=== PATIENT | male | born 1950 | race Caucasian/White ===

== ENCOUNTER → 2018-11-20 14:56 | Outpatient (CLI) | payer MEDICARE, MEDICAID, SELFPAY ==
--- NOTE | 2018-11-20 14:58 | DI.ECHO.S_ITS ---
[facility] +---------+ : : [address] : : : : [id number] : : : : Phone: [phone]+ Echocardiogram Report + + :Name: NICHOLAS RUEDA Study Date: 11/20/2018 Height: 73 in : :[facility] Weight: 172 lb : : Gender: Male BSA: 2.0 m2 : :: 1950 Age: 68 yrs BP: 122/64 mmHg: :Reason For Study: lung transplant : : Performed By: Dominga Do : :Referring: JUSTO MCGREGOR : + + Interpretation Summary Normal sinus rhythm. Normal LV size and wall thickness; normal wall motion and LV systolic function. EF is 60-65%. There is moderately dilated RV with mildly reduced RV function. There is D shaped LV in systole and diastole c/w RV pressure overload. Mitral valve leaflets are normal; there is mild MAC without significant mitral regurgitation. Aortic valve is a trileaflets structure; it is mildly calcified; no regurgitation or stenosis. Tricuspid valve leaflets are normal; mild central TR; estimated PA systolic pressure is 45 mm hg assuming RA pressure of 3 mm Hg. Mildly dilated ascending aorta (4.1 cm) No prior study available for comparison. Procedure: A two-dimensional transthoracic echocardiogram with color flow and Doppler was performed. The study quality was technically adequate. There is no prior echocardiogram noted for this patient. The heart rate ranged between 93-98 bpm during the study. Left Ventricle: The left ventricle is normal in size, wall thickness, and systolic function without any focal wall motion abnormalities. The ejection fraction is estimated to be 60-65%. Flattened septum is consistent with RV pressure/volume overload. Right Ventricle: The right ventricle is moderately dilated. Right ventricular systolic function is mildly reduced. Atria: Both atria are normal in size. There is no Doppler evidence for an interatrial shunt. Mitral Valve: The mitral valve leaflets appear mildly thickened, but open well. There is trace mitral regurgitation. Aortic Valve: The aortic valve opens well. The aortic valve is trileaflet. The aortic valve is mildly calcified. There is no aortic valve stenosis. No aortic regurgitation is present. Tricuspid Valve: The tricuspid valve is normal in structure and function. There is mild tricuspid regurgitation. The right ventricular systolic pressure is estimated to be at least 45 mmHg based on an estimated right atrial pressure of 3 mm Hg. Pulmonic Valve: The pulmonic valve is normal in structure and function. Great Vessels: The aortic root is normal size. The aortic arch is normal in size. The ascending aorta is mildly enlarged. The pulmonary artery is normal size. The IVC is of normal diameter and collapses greater than 50% with a sniff. This suggests a low right atrial pressure of 3 mm Hg. Pericardium/ Pleura There is no pericardial effusion. There is no pleural effusion. MMode/2D Measurements & Calculations LVIDd: 4.8 cm LVOT diam: 2.0 cm LVIDs: 3.7 cm Ao root diam: 3.5 cm FS: 24.5 % asc Aorta Diam: 4.1 cm IVSd: 0.96 cm Ao Arch Diam (distal): 2.4 cm LVPWd: 0.85 cm LV trinh. diameter/BSA (cm/m^2): 2.4 LV sys. diameter/BSA (cm/m^2): 1.8 LA A2 area: 19.2 cm2 RA long axis: 6.2 cm LA A4 area: 14.2 cm2 RA area: 20.7 cm2 LA length (vol): 5.8 cm RA vol: 58.7 ml LA vol: 40.1 ml RA : 29.1 ml/m2 LA vol index: 19.8 ml/m2 IVC diam: 1.3 cm RVD1 (basal): 3.8 cm TAPSE: 1.5 cm Doppler Measurements & Calculations Ao V2 max: 137.2 cm/sec LVOT Max Matty: 92.3 cm/sec Ao V2 mean: 101.6 cm/sec LV V1 max P.4 mmHg Ao max P.5 mmHg LV V1 VTI: 16.5 cm Ao mean P.5 mmHg SANDI(I,D): 2.3 cm2 Ao V2 VTI: 22.5 cm SANDI(V,D): 2.1 cm2 sev ratio: 0.73 SANDI indexed to BSA (cm^2/m^2): 1.1 MV E max matty: 65.6 cm/sec TR max matty: 322.7 cm/sec MV A max matty: 97.9 cm/sec TR max P.7 mmHg MV E/A: 0.67 Med Peak E' Matty: 6.7 cm/sec E/E' med: 9.7 Lat Peak E' Matty: 13.3 cm/sec E/E' lat: 4.9 E/e' average: 7.3 MV P1/2t: 42.6 msec MV P1/2t max matty: 66.2 cm/sec SV(LVOT): 51.6 ml MVA(P1/2t): 5.2 cm2 Electronically signed by: Ramandeep Frederick M.D. on Reading Physician:11/21/2018 02:32 AM
== END ==
PROVIDERS: PCP Student in an Organized Health Care Education/Training Program; Visit Provider Student in an Organized Health Care Education/Training Program
DX: I07.1 Rheumatic tricuspid insufficiency (principal); J84.9 Interstitial pulmonary disease, unspecified
CPT/HCPCS: 93306

== ENCOUNTER 2019-03-16 14:22 | Emergency (ER) | payer OTHER, MEDICARE, MEDICAID, SELFPAY ==
[2019-03-16 14:30] VITALS: BP 94/64; PULSE 125; RESP 32; TEMP 37.2; O2SAT 99
--- NOTE | 2019-03-16 14:32 | ED.SOB ---
HPI - SOB/Dyspnea General Chief Complaint: Shortness of Breath/Dyspnea Stated Complaint: SOB Time Seen by Provider: 03/16/19 14:31 Source: patient and EMS Mode of arrival: EMS Limitations: no limitations History of Present Illness This is a 68-year-old male comes to the emergency department with complaint of shortness of breath. Patient states that he has pulmonary fibrosis and is on hospice. He was at the [facility] when his oxygen tank ran out. He does have a concentrator but only has an output of about 2 liters/minute and patient usually requires 10 liters/minute patient states that he felt like he could not breathe. EMS states his O2 was in the 60% range, they placed him on a non-rebreather and his O2 immediately improved. Patient states he did feel like he had chest pain when he was very short of breath. He did not pass out. He denies any other new recent changes such as fever, cough cold congestion or other issues. He states that he is currently on hospice, he is potentially going to get a lung transplant but states he may not survive long enough to get this. Patient states he does not need any workup at this time. He does have additional takes for travel as well as a large concentrator that is able to do adequate output. Patient feels comfortable to return home if he has oxygen to travel. He lives about 10 minutes away by private auto. Severity: moderate Related Data Home Medications Medication Instructions Recorded Confirmed cetirizine 10 mg capsule PO cap 09/04/18 01/22/19 Previous Rx's Medication Instructions Recorded albuterol sulfate 2.5 mg/3 mL 2.5 mg INHALATION Q4-6H PRN #180 ml 09/30/18 (0.083 %) solution for nebulization atorvastatin 20 mg tablet 20 mg PO DAILY #90 tab 10/20/18 levothyroxine 50 mcg tablet 50 mcg PO DAILY #90 tab 10/20/18 metformin 500 mg tablet 500 mg PO DAILY #90 tab 10/20/18 tamsulosin 0.4 mg capsule 0.4 mg PO DAILY #90 cap 10/20/18 food supplement, lactose-reduced 1 each PO TID #5688 ml 10/29/18 oral liquid cholecalciferol (vitamin D3) 2,000 2,000 unit PO DAILY #90 cap 11/10/18 unit capsule zolpidem 10 mg tablet 10 mg PO BEDTIME PRN #30 tab 01/05/19 disabled parking #1 ea 02/04/19 nebulizer and compressor #1 each 02/10/19 Allergies Allergy/AdvReac Type Severity Reaction Status Date / Time No Known Drug Allergies Allergy Verified 03/16/19 14:33 Review of Systems Review of Systems ROS Unobtainable: All systems reviewed & are unremarkable except as noted in HPI and below PFSH Medical History Abnormal chest xray (Chronic) Chronic cough (Chronic) Hypothyroidism (Chronic) Pulmonary fibrosis (Chronic) Seasonal allergies (Chronic) Surgical History Anesthesia (Resolved) History of mandibular surgery (Resolved ~1990) Social History Smoking Status: Former smoker Tobacco: How many years used: 40 Social History Smoking Status: Former smoker Tobacco: How many years used: 40 Exam Narrative Exam Narrative: GENERAL: Alert and oriented x three, male in mild distress. Patient has a non-rebreather in place. HEENT: Head normocephalic, atraumatic, EOMI, pupils reactive, face symmetric, moist mucous membranes NECK: Supple, full range of motion CARDIOVASCULAR: Regular rate and rhythm without murmurs, rubs or gallops. RESPIRATORY: Breath sounds equal bilaterally, no wheezes, rales or rhonchi. Patient does have some coarse breath sounds. Mild tachypnea. Patient is able to speak in full sentences with a non-rebreather in place. ABDOMEN: Soft, nontender. Normoactive bowel sounds all 4 quadrants. No guarding or rebound, rigidity, no mass : No CVA tenderness EXTREMITIES: Normal range of motion, no clubbing or edema. Neurovascularly intact NEUROLOGICAL: Cranial nerves II through XII grossly intact. Moving all extremities SKIN: Warm, dry, no petechiae, no rashes or lesions. Initial Vital Signs Initial Vital Signs: Vital Signs Temperature 99.0 F 03/16/19 14:30 Pulse Rate 125 H 03/16/19 14:30 Respiratory Rate 32 H 03/16/19 14:30 Blood Pressure 94/64 03/16/19 14:30 Pulse Oximetry 99 03/16/19 14:30 Course Vital Signs - 8 hr 03/16/19 14:30 03/16/19 15:01 Temperature 99.0 F Pulse Rate 125 H 109 H Respiratory Rate 32 H 26 H Blood Pressure 94/64 Blood Pressure [Left Arm] 114/59 L Pulse Oximetry 99 97 MDM - SOB/Dyspnea MDM Narrative Medical decision making narrative: Patient states that he is hospice, he states he does not need any additional workup at this time and he just ran out of oxygen. We will work on finding him safe for transport home whether via private auto or ambulance. Patient states family can drive him back and forth and that they have home O2 available and a tank form. He also states that he has a concentrator at home that has been working without issue. I spoke with the hospice physician for patient at [phone]. We discussed the reason for patient's arrival on the does seem to be appropriate. They also discussed that they would work on making sure that he had plenty of oxygen available for transportation so that patient can be transported to engage in activities that he is interested in. Patient daughter in department and will return home to get an extra O2 tank and transport patient home. Discharge Plan Departure Patient Disposition: Home Clinical Impression: Dyspnea Discharge Date/Time: 03/16/19 15:41 Interventions: ED Discharge Assessment Last Done: 03/16/19 15:41 Activity Restrictions/Additional Instructions: Discuss with your hospice providers to come up with plan so that you can travel safely and have plenty of oxygen available. Continue home medications as prescribed. Prescriptions: No Action albuterol sulfate 2.5 mg /3 mL (0.083 %) solution for nebulization 2.5 mg INHALATION Q4-6H PRN (Reason: shortness of breath or wheezing) Qty: 180 RF: 5 Ensure liquid 1 each PO TID Qty: 5688 RF: 11 cholecalciferol (vitamin D3) 2,000 unit capsule 2,000 unit PO DAILY Qty: 90 RF: 0 zolpidem 10 mg tablet 10 mg PO BEDTIME PRN (Reason: insomnia) Qty: 30 RF: 5 disabled parking Qty: 1 RF: 0 Portable Nebulizer System device .ROUTE .MEDSUPPLY Qty: 1 RF: 0 cetirizine 10 mg capsule PO RF: 0 atorvastatin 20 mg tablet 20 mg PO DAILY Qty: 90 RF: 3 levothyroxine 50 mcg tablet 50 mcg PO DAILY Qty: 90 RF: 3 metformin 500 mg tablet 500 mg PO DAILY Qty: 90 RF: 3 tamsulosin 0.4 mg capsule 0.4 mg PO DAILY Qty: 90 RF: 3 Referrals: Elliot Riddle MD [Primary Care Provider] -
[2019-03-16 15:01] VITALS: BP 114/59; PULSE 109; RESP 26; O2SAT 97
== END 2019-03-16 15:41 | disposition home or self-care (01) ==
LOC: ED 15:08
PROVIDERS: Emergency Provider Emergency Medicine; PCP Student in an Organized Health Care Education/Training Program
DX: R06.00 Dyspnea, unspecified (principal); R07.9 Chest pain, unspecified
CPT/HCPCS: 99282; 99285

== ENCOUNTER 2019-05-23 14:31 | Emergency (ER) | payer MEDICARE, MEDICAID, SELFPAY ==
[2019-05-12 15:36] VITALS: BMI 19.8
[2019-05-23 14:47] VITALS: BP 148/87; PULSE 82; RESP 16; TEMP 36.6; O2SAT 100; BMI 21.2
--- NOTE | 2019-05-23 15:02 | ED_ITS ---
HPI - Recheck/Abnormal Lab/Rx General Chief Complaint: Recheck/Abnormal Lab/Rx Stated Complaint: Ran out of pain meds Time Seen by Provider: 05/23/19 14:36 Source: patient Mode of arrival: Ambulatory Limitations: no limitations History of Present Illness HPI narrative: Patient is a 68-year-old male with recent history of bilateral lung transplant for pulmonary fibrosis. He had surgery at the [facility] April 01. He started having some mild rejection which is common. However over the last 3 days he has had to drive to [place] every day for 1000 mg of steroid injection. With that the travel is painful and he has gone through his oxycodone. Takes 10 mg every 6 hours. They will be able to call his PCP tomorrow to ask for refill but needing something today. He overall states that his breathing is much improved from prior to surgery. complaint: medication refill request Related Data Home Medications Medication Instructions Recorded Confirmed cetirizine 10 mg capsule PO cap 09/04/18 05/20/19 furosemide 40 mg tablet 40 mg PO DAILY 04/28/19 05/20/19 metoprolol tartrate 50 mg tablet 50 mg PO BID 04/28/19 05/20/19 omeprazole 20 mg capsule,delayed 20 mg PO DAILY 04/28/19 05/20/19 release fluconazole 200 mg tablet 400 mg PO DAILY 04/29/19 05/20/19 mycophenolate mofetil 500 mg tablet 1,000 mg PO BID 04/29/19 05/20/19 oxycodone 5 mg tablet 5 mg PO Q3-4H PRN tab 04/29/19 05/20/19 polyethylene glycol 3350 17 gram 17 gram PO BID 04/29/19 05/20/19 oral powder packet prednisone 10 mg tablet 45 mg PO DAILY tab 04/29/19 05/20/19 sennosides 17.2 mg tablet 17.2 mg PO DAILY 04/29/19 05/20/19 sulfamethoxazole 400 1 tab PO BEDTIME 04/29/19 05/20/19 mg-trimethoprim 80 mg tablet tacrolimus 1 mg capsule 1 mg PO Q12H 04/29/19 05/20/19 valganciclovir 450 mg tablet 900 mg PO DAILY 04/29/19 05/20/19 Previous Rx's Medication Instructions Recorded albuterol sulfate 2.5 mg INHALATION Q4-6H PRN #180 ml 09/30/18 atorvastatin 20 mg tablet 20 mg PO DAILY #90 tab 10/20/18 levothyroxine 50 mcg tablet 50 mcg PO DAILY #90 tab 10/20/18 tamsulosin 0.4 mg capsule 0.4 mg PO DAILY #90 cap 10/20/18 food supplemt, lactose-reduced 1 each PO TID #5688 ml 10/29/18 disabled parking #1 ea 02/04/19 nebulizer and compressor #1 each 02/10/19 Lispro sliding scale #1 ea 04/29/19 acetaminophen 500 mg tablet 500 mg PO QID PRN #120 tab 05/13/19 aspirin 81 mg tablet,delayed 81 mg PO DAILY #90 tab 05/13/19 release blood sugar diagnostic #400 each 05/13/19 calcium carbonate 390 mg calcium 390 mg PO BID #180 tab 05/13/19 (1,000 mg) tablet cholecalciferol (vitamin D3) 1,000 2,000 unit PO DAILY #90 cap 05/13/19 unit capsule clotrimazole 10 mg daniela 10 mg MM TID #90 tab 05/13/19 insulin NPH isoph U-100 human 100 6 unit SUBCUT BID #3 ml 05/13/19 unit/mL subcutaneous suspension insulin lispro 100 unit/mL 3 unit SUBCUT QAC #3 ml 05/13/19 subcutaneous pen lancets 33 gauge #400 each 05/13/19 magnesium oxide 400 mg PO BID #180 cap 05/13/19 BD ULTRA FINE PEN NEEDLES #300 each 05/14/19 tizanidine 2 mg tablet 2 mg PO Q8H PRN #90 tab 05/21/19 oxycodone 10 mg PO Q6H PRN #10 tab 05/23/19 Allergies Allergy/AdvReac Type Severity Reaction Status Date / Time No Known Drug Allergies Allergy Verified 05/20/19 14:21 Review of Systems Review of Systems ROS Unobtainable: All systems reviewed & are unremarkable except as noted in HPI and below Constitutional Constitutional: Denies chills, Denies fever(s), Denies lethargy and Denies weakness Eyes Eyes: Denies change in vision, Denies eye discharge, Denies irritation and Denies loss of vision ENT Ears, Nose, Mouth, and Throat: Denies change in voice, Denies neck pain and Denies sore throat Respiratory Respiratory: Reports as per HPI Gastrointestinal Gastrointestinal: Denies abdominal pain, Denies change in bowel habits, Denies diarrhea, Denies nausea and Denies vomiting Genitourinary Genitourinary: Denies hematuria, Denies flank pain, Denies urinary incontinence and Denies urinary urgency Musculoskeletal Musculoskeletal: Denies neck pain Integumentary/Breasts Skin/Breast: Denies pruritus, Denies erythema, Denies rash and Denies wounds Neurologic Neurologic: Denies loss of vision and Denies weakness [facility] Medical History Abnormal chest xray (Chronic) Chronic cough (Chronic) Hypothyroidism (Chronic) Pulmonary fibrosis (Chronic) Seasonal allergies (Chronic) Surgical History Anesthesia (Resolved) History of mandibular surgery (Resolved ~1990) Social History Smoking Status: Former smoker Tobacco: How many years used: 40 Social History Smoking Status: Former smoker Tobacco: How many years used: 40 Exam Initial Vital Signs Initial Vital Signs: Vital Signs Temperature 97.8 F 05/23/19 14:47 Pulse Rate 82 05/23/19 14:47 Respiratory Rate 16 05/23/19 14:47 Blood Pressure 148/87 H 05/23/19 14:47 Pulse Oximetry 100 05/23/19 14:47 GENERAL: Chronically-ill male and in no acute distress. HEENT: Head atraumatic,EOMI, pupils reactive, face symmetric, moist mucous membranes CARDIOVASCULAR: Regular rate and rhythm without murmurs, rubs or gallops. RESPIRATORY: Breath sounds equal bilaterally, no wheezes rales or rhonchi. ABDOMEN: Soft, nontender. Normoactive bowel sounds all 4 quadrants. No guarding or rebound. EXTREMITIES: Normal range of motion, no clubbing or edema. Neurovascularly intact NEUROLOGICAL: Alert and oriented x4.Normal gait and speech. Cranial nerves II through XII grossly intact. SKIN: Warm, dry, no laceration, no petechiae, no rashes or lesions. Surgical scar noted across chest incision site clean and dry Steri-Strips seems to be healed. Course Vital Signs Vital signs: Vital Signs - 8 hr 05/23/19 14:47 Temperature 97.8 F Pulse Rate 82 Respiratory Rate 16 Blood Pressure 148/87 H Pulse Oximetry 100 Discharge Plan Departure Patient Disposition: Home Clinical Impression: Encounter for medication refill, Lung transplant recipient Discharge Date/Time: 05/23/19 15:13 Instructions: Oxycodone Activity Restrictions/Additional Instructions: *You have been diagnosed with pain medication refill lung transplant recipient *What to do: Need to call PCP tomorrow for refill on pain med *Continue to take medications as directed Oxycodone 10 mg every 6 hours if needed for pain *Follow up with your primary care provider in 2-3 days *Return to ER if you should have increasing shortness of breath, chest pain or any new, worsening or concerning symptoms Prescriptions: New oxycodone 10 mg tablet 10 mg PO Q6H PRN (Reason: pain) Qty: 10 RF: 0 No Action albuterol sulfate 2.5 mg /3 mL (0.083 %) solution for nebulization 2.5 mg INHALATION Q4-6H PRN (Reason: shortness of breath or wheezing) Qty: 180 RF: 5 Ensure liquid 1 each PO TID Qty: 5688 RF: 11 (DME) disabled parking Qty: 1 RF: 0 (DME) Portable Nebulizer System device See Dose Instructions .ROUTE .MEDSUPPLY Qty: 1 RF: 0 furosemide 40 mg tablet 40 mg PO DAILY RF: 0 metoprolol tartrate 50 mg tablet 50 mg PO BID RF: 0 omeprazole 20 mg capsule,delayed release(DR/EC) 20 mg PO DAILY RF: 0 insulin lispro 100 unit/mL insulin pen 3 unit SUBCUT QAC Qty: 3 RF: 11 Humulin N NPH U-100 Insulin 100 unit/mL suspension 6 unit SUBCUT BID Qty: 3 RF: 11 clotrimazole 10 mg daniela 10 mg MM TID Qty: 90 RF: 5 aspirin 81 mg tablet,delayed release (DR/EC) 81 mg PO DAILY Qty: 90 RF: 1 acetaminophen 500 mg tablet 500 mg PO QID PRN (Reason: pain) Qty: 120 RF: 5 calcium carbonate 390 mg calcium (1,000 mg) tablet 390 mg PO BID Qty: 180 RF: 1 cholecalciferol (vitamin D3) 1,000 unit capsule 2,000 unit PO DAILY Qty: 90 RF: 1 magnesium oxide 400 mg magnesium capsule 400 mg PO BID Qty: 180 RF: 1 (DME) Blood Glucose Test strip See Rx Instructions .ROUTE .MEDSUPPLY Qty: 400 RF: 3 (DME) lancets [OneTouch Delica Lancets] 33 gauge misc See Rx Instructions .ROUTE .MEDSUPPLY Qty: 400 RF: 3 (DME) BD ULTRA FINE PEN NEEDLES Qty: 300 RF: 3 tizanidine 2 mg tablet 2 mg PO Q8H PRN (Reason: muscle spasticity) Qty: 90 RF: 1 tacrolimus 1 mg capsule 1 mg PO Q12H RF: 0 Senna-Extra 17.2 mg tablet 17.2 mg PO DAILY RF: 0 (DME) Lispro sliding scale Qty: 1 RF: 0 mycophenolate mofetil [CellCept] 500 mg tablet 1,000 mg PO BID RF: 0 prednisone 10 mg tablet 45 mg PO DAILY RF: 0 fluconazole 200 mg tablet 400 mg PO DAILY RF: 0 sulfamethoxazole-trimethoprim 400-80 mg tablet 1 tab PO BEDTIME RF: 0 valganciclovir 450 mg tablet 900 mg PO DAILY RF: 0 oxycodone 5 mg tablet 5 mg PO Q3-4H PRNRF: 0 polyethylene glycol 3350 17 gram powder in packet 17 gram PO BID RF: 0 cetirizine 10 mg capsule PO RF: 0 atorvastatin 20 mg tablet 20 mg PO DAILY Qty: 90 RF: 3 levothyroxine 50 mcg tablet 50 mcg PO DAILY Qty: 90 RF: 3 tamsulosin 0.4 mg capsule 0.4 mg PO DAILY Qty: 90 RF: 3 Referrals: Elliot Riddle MD [Primary Care Provider] -
== END 2019-05-23 15:13 | disposition home or self-care (01) ==
PROVIDERS: Emergency Provider Emergency Medicine; PCP Student in an Organized Health Care Education/Training Program
DX: R07.9 Chest pain, unspecified (principal); Z76.0 Encounter for issue of repeat prescription; Z94.2 Lung transplant status
CPT/HCPCS: 93005; 99282; 99283

== ENCOUNTER → 2019-06-15 14:19 | Outpatient (CLI) | payer MEDICARE, MEDICAID, SELFPAY ==
[2019-05-27 15:06] VITALS: BMI 19.8
[2019-06-15 16:17] LABS: BUN Creatinine Ratio 33.8 (6-22); Blood Urea Nitrogen 27 mg/dL (9-20); Calcium 9.5 mg/dL (8.4-10.2); Carbon Dioxide 24 mmol/L (22-32); Chloride 104 mmol/L (98-107); Estimated Glomerular Filt Rate > 60.0 mL/min (>60); Glucose 100 mg/dL (80-110); HEMOLYSIS 47 (0-50); Sodium 138 mmol/L (137-145)
[2019-06-15 16:19] LABS: Potassium 5.5 mmol/L (3.4-5.1)
== END ==
PROVIDERS: PCP Student in an Organized Health Care Education/Training Program; Visit Provider Internal Medicine
DX: Z94.2 Lung transplant status (principal); Z79.899 Other long term (current) drug therapy
CPT/HCPCS: 36415; 80048; 80197

== ENCOUNTER → 2019-06-18 09:59 | Outpatient (CLI) | payer MEDICARE, MEDICAID, SELFPAY ==
[2019-05-27 15:06] VITALS: BMI 19.8
[2019-06-18 11:21] LABS: Blood Urea Nitrogen 28 mg/dL (9-20); Calcium 9.6 mg/dL (8.4-10.2); Carbon Dioxide 24 mmol/L (22-32); Chloride 104 mmol/L (98-107); Estimated Glomerular Filt Rate > 60.0 mL/min (>60); Glucose 95 mg/dL (80-110); HEMOLYSIS 18 (0-50); Sodium 137 mmol/L (137-145)
== END ==
PROVIDERS: PCP Student in an Organized Health Care Education/Training Program; Visit Provider Internal Medicine
DX: Z94.2 Lung transplant status (principal); Z79.899 Other long term (current) drug therapy
CPT/HCPCS: 36415; 80048; 80197

== ENCOUNTER → 2019-07-14 12:57 | Outpatient (CLI) | payer MEDICARE, MEDICAID, SELFPAY ==
[2019-05-27 15:06] VITALS: BMI 19.8
[2019-07-14 14:23] LABS: BUN Creatinine Ratio 35.7 (6-22); Blood Urea Nitrogen 25 mg/dL (9-20); Calcium 9.5 mg/dL (8.4-10.2); Carbon Dioxide 25 mmol/L (22-32); Chloride 107 mmol/L (98-107); Estimated Glomerular Filt Rate > 60.0 mL/min (>60); Glucose 105 mg/dL (80-110); HEMOLYSIS 43 (0-50); Potassium 4.9 mmol/L (3.4-5.1); Sodium 139 mmol/L (137-145)
[2019-07-17 02:37] LABS: CMV DNA, Quant PCR LOG 10 <2.30 Log IU/mL; CMV DNA, Quant Real Time PCR <200 IU/mL; Source WHOLE BLOOD
[2019-07-17 09:03] LABS: Tacrolimus 11.6 mcg/L (5.0-20.0)
== END ==
PROVIDERS: PCP Student in an Organized Health Care Education/Training Program; Visit Provider Internal Medicine
DX: Z94.2 Lung transplant status (principal); Z79.899 Other long term (current) drug therapy
CPT/HCPCS: 36415; 80048; 80197; 87497

== ENCOUNTER → 2019-07-16 12:15 | Outpatient (CLI) | payer MEDICARE, MEDICAID, SELFPAY ==
[2019-05-27 15:06] VITALS: BMI 19.8
--- NOTE | 2019-07-16 12:20 | DI.RAD.S_ITS ---
PROCEDURE: XR CHEST 2V INDICATIONS: Cough, r/o effusion TECHNIQUE: 2 views of the chest were acquired. COMPARISON: None. FINDINGS: Surgical changes and devices: Patient is status post sternotomy. Lungs and pleura: There is diffuse interstitial prominence. There is mild blunting of the left costophrenic sulcus suggesting mild effusion. Mediastinum: The heart is enlarged. Bones and chest wall: No suspicious bony abnormalities. Soft tissues appear unremarkable. IMPRESSION: Cardiomegaly and interstitial prominence suggesting fluid overload. Mild blunting at the left costophrenic sulcus suggests small effusion. Dictated by: Bertha Cabrera M.D. on 07/16/2019 at 17:27 Approved by: Bertha Cabrera M.D. on 07/16/2019 at 17:35
[2019-07-16 19:49] LABS: Adenovirus Not Detected (Not Detect); Bordetella pertussis Not Detected (Not Detect); Chlamydophila pneumoniae Not Detected (Not Detect); Coronavirus 229E Not Detected (Not Detect); Coronavirus HKU1 Not Detected (Not Detect); Coronavirus NL 63 Not Detected (Not Detect); Coronavirus OC43 Not Detected (Not Detect); Human Metapneumovirus Not Detected (Not Detect); Human Rhinovirus/Enterovirus Detected (Not Detect); Influenza A Not Detected (Not Detect); Influenza B Not Detected (Not Detect); Mycoplasma pneumoniae Not Detected (Not Detect); Parainfluenza Virus 1 Not Detected (Not Detect); Parainfluenza Virus 2 Not Detected (Not Detect); Parainfluenza Virus 3 Not Detected (Not Detect); Parainfluenza Virus 4 Not Detected (Not Detect); Respiratory Syncytial Virus Not Detected (Not Detect)
== END ==
PROVIDERS: PCP Student in an Organized Health Care Education/Training Program; Visit Provider Student in an Organized Health Care Education/Training Program
DX: R05 Cough (principal); Z94.2 Lung transplant status; J22 Unspecified acute lower respiratory infection
CPT/HCPCS: 71046; 87070; 87102; 87205; 87633

== ENCOUNTER → 2019-07-23 10:41 | Outpatient (CLI) | payer MEDICARE, MEDICAID, SELFPAY ==
[2019-05-27 15:06] VITALS: BMI 19.8
[2019-07-26 16:14] LABS: CMV DNA, Quant PCR LOG 10 <2.30 Log IU/mL; CMV DNA, Quant Real Time PCR <200 IU/mL; Source WHOLE BLOOD EDTA
== END ==
PROVIDERS: PCP Student in an Organized Health Care Education/Training Program; Visit Provider Internal Medicine
DX: Z94.2 Lung transplant status (principal); Z79.899 Other long term (current) drug therapy
CPT/HCPCS: 36415; 87497

== ENCOUNTER → 2019-07-30 12:32 | Outpatient (CLI) | payer MEDICARE, MEDICAID, SELFPAY ==
[2019-05-27 15:06] VITALS: BMI 19.8
== END ==
PROVIDERS: PCP Student in an Organized Health Care Education/Training Program; Visit Provider Internal Medicine
DX: Z94.2 Lung transplant status (principal); Z79.899 Other long term (current) drug therapy
CPT/HCPCS: 36415; 87497

== ENCOUNTER → 2019-08-07 12:45 | Outpatient (CLI) | payer MEDICARE, MEDICAID, SELFPAY ==
[2019-05-27 15:06] VITALS: BMI 19.8
[2019-08-13 15:22] LABS: Miscellaneous to Univ of WA SEE SEPARATE REPORT
== END ==
PROVIDERS: PCP Student in an Organized Health Care Education/Training Program; Visit Provider Internal Medicine
DX: Z94.2 Lung transplant status (principal); Z79.899 Other long term (current) drug therapy
CPT/HCPCS: 36415; 87497

== ENCOUNTER → 2019-08-19 10:57 | Outpatient (CLI) | payer MEDICARE, MEDICAID, SELFPAY ==
[2019-05-27 15:06] VITALS: BMI 19.8
[2019-08-19 12:32] LABS: Add Manual Diff / Slide Review NO; Basophils Absolute Auto 100 /uL (0-100); Basophils Percent Auto 0.8 % (0-2); Eosinophils Absolute Auto 200 /uL (0-450); Eosinophils Percent Auto 2.2 % (2-4); Hematocrit 36.4 % (41-53); Hemoglobin 12.3 g/dL (13.5-17.5); Lymphocytes Absolute Auto 1100 /uL (1100-4500); Mean Corpuscular HGB Conc 33.8 % (30-36); Mean Corpuscular Hemoglobin 30.7 PG (26-34); Mean Corpuscular Volume 90.8 fL (80-100); Monocytes Absolute Auto 700 /uL (0-900); Monocytes Percent Auto 10.8 % (3-14); Neutrophils Absolute Auto 4800 /uL (1500-7000); Neutrophils Percent Auto 70.2 % (50-75); Platelet Count 296 X10^3/uL (150-400); Red Blood Cell Count 4.01 X10^6/uL (4.5-5.9); Red Cell Distribution Width 14.1 % (11.6-14.8); White Blood Cell Count 6.8 X10^3/uL (4.5-11.0)
[2019-08-19 12:35] LABS: BUN Creatinine Ratio 23.3 (6-22); Blood Urea Nitrogen 28 mg/dL (9-20); Calcium 9.7 mg/dL (8.4-10.2); Carbon Dioxide 24 mmol/L (22-32); Chloride 104 mmol/L (98-107); Estimated Glomerular Filt Rate > 60.0 mL/min (>60); Glucose 83 mg/dL (80-110); HEMOLYSIS < 15 (0-50); Potassium 4.8 mmol/L (3.4-5.1); Sodium 140 mmol/L (137-145)
[2019-08-21 19:44] LABS: Tacrolimus 9.4 mcg/L (5.0-20.0)
== END ==
PROVIDERS: PCP Student in an Organized Health Care Education/Training Program; Visit Provider Internal Medicine
DX: Z94.2 Lung transplant status (principal); Z79.899 Other long term (current) drug therapy
CPT/HCPCS: 36415; 80048; 80197; 85025; 87497

== ENCOUNTER → 2019-08-23 17:26 | Outpatient (CLI) | payer MEDICARE, MEDICAID, SELFPAY ==
[2019-05-27 15:06] VITALS: BMI 19.8
--- NOTE | 2019-08-23 17:33 | DI.RAD.S_ITS ---
PROCEDURE: XR CHEST 2V INDICATIONS: upper respiratory symptoms Additional history: Bilateral lung transplant. TECHNIQUE: 2 views of the chest were acquired. COMPARISON: [facility], CR, XR CHEST 2V, 07/16/2019, 12:27. FINDINGS: Surgical changes and devices: Poststernotomy. Lungs and pleura: Mild ill-defined opacity at the lung bases which appears increased compared to CXR of 07/16/2019. Blunting of the left costophrenic angle. No pneumothorax. Mediastinum: Mediastinal contours are normal. Heart size is normal. Bones and chest wall: No suspicious bony abnormalities. Soft tissues appear unremarkable. IMPRESSION: Mild ill-defined bibasilar airspace opacity. Question of trace left pleural effusion. If clinically indicated CT of the chest could be performed in this patient with history of prior lung transplant. Dictated by: Ilya Morocho M.D. on 08/23/2019 at 18:01 Approved by: Ilya Morocho M.D. on 08/23/2019 at 18:04
[2019-08-23 19:31] LABS: Adenovirus Not Detected (Not Detect); Bordetella pertussis Not Detected (Not Detect); Chlamydophila pneumoniae Not Detected (Not Detect); Coronavirus 229E Not Detected (Not Detect); Coronavirus HKU1 Not Detected (Not Detect); Coronavirus NL 63 Not Detected (Not Detect); Coronavirus OC43 Not Detected (Not Detect); Human Metapneumovirus Detected (Not Detect); Human Rhinovirus/Enterovirus Not Detected (Not Detect); Influenza A Not Detected (Not Detect); Influenza B Not Detected (Not Detect); Mycoplasma pneumoniae Not Detected (Not Detect); Parainfluenza Virus 1 Not Detected (Not Detect); Parainfluenza Virus 2 Not Detected (Not Detect); Parainfluenza Virus 3 Not Detected (Not Detect); Parainfluenza Virus 4 Not Detected (Not Detect); Respiratory Syncytial Virus Not Detected (Not Detect)
== END ==
PROVIDERS: PCP Student in an Organized Health Care Education/Training Program; Visit Provider Student in an Organized Health Care Education/Training Program
DX: R09.89 Other specified symptoms and signs involving the circulatory and respiratory systems (principal); Z94.2 Lung transplant status
CPT/HCPCS: 71046; 87633

== ENCOUNTER → 2019-09-09 11:07 | Outpatient (CLI) | payer MEDICARE, MEDICAID, SELFPAY ==
[2019-05-27 15:06] VITALS: BMI 19.8
[2019-09-09 13:14] LABS: BUN Creatinine Ratio 23.3 (6-22); Blood Urea Nitrogen 28 mg/dL (9-20); Calcium 9.9 mg/dL (8.4-10.2); Carbon Dioxide 24 mmol/L (22-32); Chloride 104 mmol/L (98-107); Estimated Glomerular Filt Rate > 60.0 mL/min (>60); Glucose 95 mg/dL (80-110); HEMOLYSIS < 15 (0-50); Potassium 3.9 mmol/L (3.4-5.1); Sodium 140 mmol/L (137-145)
[2019-09-11 16:35] LABS: Tacrolimus 5.6 mcg/L (5.0-20.0)
== END ==
PROVIDERS: PCP Student in an Organized Health Care Education/Training Program; Visit Provider Internal Medicine
DX: Z94.2 Lung transplant status (principal); Z79.899 Other long term (current) drug therapy
CPT/HCPCS: 36415; 80048; 80197; 87497

== ENCOUNTER → 2019-09-22 10:58 | Outpatient (CLI) | payer MEDICARE, MEDICAID, SELFPAY ==
[2019-05-27 15:06] VITALS: BMI 19.8
[2019-09-22 11:50] LABS: Hemoglobin A1C% w Est Avg Glu 5.7 % (4.0-6.0)
[2019-09-22 12:02] LABS: Blood Urea Nitrogen 19 mg/dL (9-20); Calcium 9.6 mg/dL (8.4-10.2); Carbon Dioxide 24 mmol/L (22-32); Chloride 105 mmol/L (98-107); Estimated Glomerular Filt Rate > 60.0 mL/min (>60); Glucose 144 mg/dL (80-110); HEMOLYSIS < 15 (0-50); Potassium 3.6 mmol/L (3.4-5.1); Sodium 141 mmol/L (137-145)
[2019-09-24 15:02] LABS: Tacrolimus 6.8 mcg/L (5.0-20.0)
== END ==
PROVIDERS: PCP Student in an Organized Health Care Education/Training Program; Visit Provider Internal Medicine
DX: E11.9 Type 2 diabetes mellitus without complications (principal)
CPT/HCPCS: 36415; 80048; 80197; 83036

== ENCOUNTER → 2019-10-01 11:59 | Outpatient (CLI) | payer MEDICARE, MEDICAID, SELFPAY ==
[2019-05-27 15:06] VITALS: BMI 19.8
--- NOTE | 2019-10-01 12:00 | DI.MRI.S_ITS ---
PROCEDURE: MR SHOULDER LT WO CON INDICATIONS: Left shoulder pain TECHNIQUE: Noncontrast oblique coronal T2 fast spin echo with fat saturation, oblique sagittal T1 spin echo and T2 fast spin echo with fat saturation, axial T1 spin echo and T2 fast spin echo with fat saturation through the shoulder. COMPARISON: None. FINDINGS: Image quality: Excellent. Rotator cuff: Tendinosis and low-grade articular and bursal surface partial-thickness tear involving distal supraspinatus at its insertion the humeral head extending to the musculotendinous junction is seen. Distal infraspinatus tendinosis and low-grade articular and bursal surface partial-thickness tear is also seen. Distal subscapularis tendinosis is seen. No full-thickness rotator cuff tendon rupture. Sagittal images demonstrate mild to moderate supraspinatus muscle atrophy. Bones and bursae: No bone marrow contusions or fractures. Moderate acromioclavicular joint osteophytic changes are seen with downward osteophyte formation compressing on musculotendinous junction of supraspinatus. Mild to moderate glenohumeral joint osteoarthritic changes also seen. No pathologic subacromial-subdeltoid or subcoracoid bursal fluid is present. Capsule and soft tissues: In the absence of intra-articular contrast, there is suggestion of superior anterior labral tear at 12 to 2:00 position and posterior inferior labral tear at 5 to 7:00 position. The glenohumeral ligaments appear intact. Tendinosis involving proximal intra-articular portion of lung head of biceps tendon is seen. The rotator interval appears normal, without fibrosis. The coracohumeral ligament is normal in thickness. IMPRESSION: 1. Tendinosis and low-grade articular and bursal surface partial-thickness tear involving distal supraspinatus and infraspinatus extending to musculotendinous junction. Mild to moderate supraspinatus muscle atrophy. Distal subscapularis tendinosis. 2. Tendinosis involving proximal intra-articular portion of long head biceps. 3. Moderate acromioclavicular joint and glenohumeral joint osteoarthritis. 4. Suggestion of superior anterior labral tear at 12 to 2:00 position and posterior inferior labral tear at 6 to 7:00 position. Dictated by: Nestor Waite M.D. on 10/01/2019 at 14:00 Approved by: Nestor Waite M.D. on 10/01/2019 at 14:05
== END ==
PROVIDERS: Family Provider Student in an Organized Health Care Education/Training Program; PCP Student in an Organized Health Care Education/Training Program; Referring Provider Student in an Organized Health Care Education/Training Program; Visit Provider Student in an Organized Health Care Education/Training Program
DX: M25.512 Pain in left shoulder (principal); M75.112 Incomplete rotator cuff tear or rupture of left shoulder, not specified as traumatic; M19.012 Primary osteoarthritis, left shoulder
CPT/HCPCS: 73221

== ENCOUNTER → 2019-10-29 12:30 | Outpatient (CLI) | payer MEDICARE, MEDICAID, SELFPAY ==
[2019-05-27 15:06] VITALS: BMI 19.8
--- NOTE | 2019-11-05 15:52 | PM.PFT.1 ---
Pulmonary Function Test Referral & Results Date Patient Seen: 10/29/19 Requesting provider: Talib Acosta Indication: Lung transplant Results: The spirometry demonstrates an FVC of 3.61 L which is 72% of predicted. The FEV1 was measured at 2.75 L which is 74% of predicted. The FEV1/FVC ratio was 76 which is 103% of predicted. No bronchodilator was administered No lung volumes were performed No diffusing capacity was performed Interpretation: This study demonstrates mild obstructive lung disease
== END ==
PROVIDERS: Family Provider Student in an Organized Health Care Education/Training Program; PCP Student in an Organized Health Care Education/Training Program; Referring Provider Internal Medicine Pulmonary Disease; Visit Provider Internal Medicine Pulmonary Disease
DX: Z94.2 Lung transplant status (principal); Z87.891 Personal history of nicotine dependence
CPT/HCPCS: 94010

== ENCOUNTER → 2019-11-01 11:07 | Outpatient (CLI) | payer MEDICARE, MEDICAID, SELFPAY ==
[2019-05-27 15:06] VITALS: BMI 19.8
[2019-11-01 12:08] LABS: Add Manual Diff / Slide Review NO; Basophils Absolute Auto 100 /uL (0-100); Basophils Percent Auto 0.8 % (0-2); Eosinophils Absolute Auto 100 /uL (0-450); Eosinophils Percent Auto 1.3 % (2-4); Hematocrit 36.9 % (41-53); Hemoglobin 12.2 g/dL (13.5-17.5); Lymphocytes Absolute Auto 1200 /uL (1100-4500); Lymphocytes Percent Auto 16.9 % (25-40); Mean Corpuscular HGB Conc 33.1 % (30-36); Mean Corpuscular Hemoglobin 28.5 PG (26-34); Mean Corpuscular Volume 86.1 fL (80-100); Monocytes Absolute Auto 600 /uL (0-900); Monocytes Percent Auto 8.9 % (3-14); Neutrophils Absolute Auto 5100 /uL (1500-7000); Neutrophils Percent Auto 72.1 % (50-75); Platelet Count 262 X10^3/uL (150-400); Red Blood Cell Count 4.29 X10^6/uL (4.5-5.9); Red Cell Distribution Width 14.4 % (11.6-14.8); White Blood Cell Count 7.1 X10^3/uL (4.5-11.0)
[2019-11-01 12:45] LABS: Alanine Aminotransferase 14 IU/L (<50); Albumin 4.1 g/dL (3.5-5.0); Albumin Globulin Ratio 1.6 (1.0-2.8); Alkaline Phosphatase 46 U/L (38-126); Aspartate Aminotransferase 21 IU/L (17-59); BUN Creatinine Ratio 19.1 (6-22); Bilirubin Total 0.5 mg/dL (0.2-1.3); Blood Urea Nitrogen 21 mg/dL (9-20); Calcium 9.8 mg/dL (8.4-10.2); Carbon Dioxide 22 mmol/L (22-32); Chloride 105 mmol/L (98-107); Estimated Glomerular Filt Rate > 60.0 mL/min (>60); Globulin 2.5 g/dL (1.7-4.1); Glucose 162 mg/dL (80-110); HEMOLYSIS < 15 (0-50); Potassium 4.6 mmol/L (3.4-5.1); Sodium 138 mmol/L (137-145); Total Protein 6.6 g/dL (6.3-8.2)
== END ==
PROVIDERS: Family Provider Student in an Organized Health Care Education/Training Program; PCP Student in an Organized Health Care Education/Training Program; Referring Provider Internal Medicine; Visit Provider Internal Medicine
DX: I10 Essential (primary) hypertension (principal)
CPT/HCPCS: 36415; 80053; 80197; 85025; 87497

== ENCOUNTER 2019-11-04 11:30 | Outpatient (RCR) | payer MEDICARE, MEDICAID, SELFPAY ==
[2019-05-12 15:36] VITALS: BP 102/60; BP 102/62; RESP 16; O2SAT 80; BMI 19.8
--- NOTE | 2019-05-12 16:11 | PR.IEVALNOTE ---
Current Diagnoses Lung transplant status (05/12/19) Past Medical History (Last Reviewed 03/16/19 @ 14:39 by Kimber Basurto DO) Abnormal chest xray (Chronic) Chronic cough (Chronic) Hypothyroidism (Chronic) Pulmonary fibrosis (Chronic) Seasonal allergies (Chronic) Visit Care Team Role Provider Type Elliot iRddle MD Primary Care Provider Physician Specialty: Internal Medicine Address: [address] [place] [address], [address], [address] Email: [email or web address] Other Providers Specialty: Address: Phone: Fax: Email: Doctor Shiva MD Attending Provider Non-Staff Specialty: Medical Address: Phone: Fax: Email: Pulmonary Rehab Initial Evaluation DC Pulmonary Rehab Inital Assessment Start: 05/11/19 12:40 Freq: Status: Active Protocol: Document 05/12/19 15:36 RADHA (Rec: 05/12/19 16:10 RADHA [email or web address]) DC Exercise Assessment Dx: post bilateral lung transplant Primary Language SAO TOMEAN Information Specialist Required No Hearing Ability Normal Visual Impairment No Limitations Visual Difficutly None Musculoskeletal Symptoms Difficulty Walking,Muscle Weakness Body Alignment Posture Leaning Assistive Devices Front Wheeled Walker History of Falling (Immediate or Yes Previous) Ambulatory Aid Crutches/cane/walker IV/Heparin Lock No Gait/Transfer Weak Mental Status Oriented to own ability Fall Risk Comment: high risk of falls due to muscle weakness Plan to Decrease Fall Risk specific exercises to address including but not limited to resistance exercises from seated position and use of gait belt with all transfers Comment patient attended pulmonary rehab prior to transplant surgery DC Vital Signs Pulse Oximetry (91-100 %) 80 L Nasal Cannula No O2 Sat: 98 Respiratory Rate (12-24 breaths/min) 16 Respiratory Effort Non-Labored Respiratory Depth Normal Assessment clear to auscultation no wheeze rales rhonchi or crackles Right Arm Blood Pressure (90/60-140/90 mmHg) 102/60 Blood Pressure Method Manual Cuff/Auscultation Left Arm Blood Pressure (90/60-140/90 mmHg) 102/62 Blood Pressure Method Manual Cuff/Auscultation DC Six Minute Walk Test Oxygen Delivery Method Room Air Respiratory Rate (breaths/min) 16 Pulse Rate (beats/min) 87 O2 Saturation by Pulse Oximetry (%) 98 Pulse Rate (beats/min) 89 Ambulation Distance (feet) 100 O2 Saturation by Pulse Oximetry (%) 98 Pulse Rate (beats/min) 85 Ambulation Distance (feet) 50 O2 Saturation by Pulse Oximetry (%) 98 Pulse Rate (beats/min) 88 Ambulatory Distance (feet) 50 O2 Saturation by Pulse Oximetry (%) 97 Pulse Rate (beats/min) 88 Ambulation Distance (feet) 100 O2 Saturation by Pulse Oximetry (%) 97 Pulse Rate (beats/min) 88 Ambulation Distance (feet) 100 O2 Saturation by Pulse Oximetry (%) 97 PUlse Rate (beats/min) 86 Ambulation Distance (feet) 50 O2 Saturation by Pulse Oximetry (%) 97 Respiratory Rate (breaths/min) 16 Pulse Rate (beats/min) 78 O2 Saturation by Pulse Oximetry (%) 98 Activity Tolerance Poor Adverse Reactions Unsteady Gait,Staggering Distance 400 Nely RPE Scale 12 Oriented to RPE Scale Yes Dyspnea 3 Oriented to Dyspnea Scale Yes DC Exercise Goals Exercise Goals focus on basic transfer activities eg: sit to stand, functional mobility, and improving stability in the erect posture Exercise Goals limited resistance with upper extremity exercises while under clarisa-lateral thoracotomy 4-7 weeks DASI Number and Comment 7.006 Short Term postural awareness, maintenance of good posture and back protection methods, avoiding rotation and flexion Penitentiary maintenance of regular exercise proper nutrition recognition of symptoms and signs of infection and organ rejection awareness of usp adverse effects of immunosupression such as neuropathy, gait disturbances and osteoporosis DC Pulmonary Rehab Orientation Complete Complete Yes DC Nutrition Assessment PFT Date 04/28/19 Forced Vital Capacity (FVC) 3.10 62% Forced Exp. Volume/Forced Vital Cap 0.93 Ratio (FEV1/FVC Ratio) Forced Expiratory Volume in 1 sec. 2.88 76% History of Diabetes Yes: steroid induced hyperglycemia Type Type 2 Oral Diabetic Medication Agents Lispro NPH On Insulin Yes Glucose Monitoring Yes Fasting Blood Glucose 118 Admit Height 185.42 cm Admit Weight 68.039 kg Admit Body Mass Index (BMI) 19.8 Additional Comment discussed dietary needs- currently under the care of cemetery warden DC Education Pre-Test Score 82% Tobacco Use Former, Quit >6 Months Use No Concerns None Discussed Education Requirements on Yes Intake DC Psychosocial Initial Assess HADS Score 10 HADS Score 7 Marital Status Additional Comment lives with son Referral Needed Yes Referred to Counselling Yes Physician Comment Ready for Pulmonary Rehabilitation Cooperative,Motivated,Anxious
--- NOTE | 2019-06-21 16:05 | PR.REVALNOTE ---
Current Diagnoses Lung transplant status (06/21/19) Past Medical History (Last Reviewed 05/23/19 @ 15:29 by Virginia Colvin DO) Abnormal chest xray (Chronic) Chronic cough (Chronic) Hypothyroidism (Chronic) Pulmonary fibrosis (Chronic) Seasonal allergies (Chronic) Visit Care Team Role Provider Type Elliot Riddle MD Primary Care Provider Physician Specialty: Internal Medicine Address: [address] [place] [address], [address], [address] Email: [email or web address] Other Providers Specialty: Address: Phone: Fax: Email: Doctor Shiva MD Attending Provider Non-Staff Specialty: Medical Address: Phone: Fax: Email: Pulmonary Rehab Re-Evaluation [place] Pulmonary Rehab. Re-Assessment Start: 05/11/19 12:40 Freq: Status: Active Protocol: Document 06/21/19 15:29 JWS (Rec: 06/21/19 15:34 JWJose [email or web address]) [place] Exercise Re-Assessment New Session Number 2-12 Type Treadmill,Strider METs (resistance level) TM2.25 Strdr 3.60 % Improvement TM 17% Strdr 97% Interval Training No: plan is to start VIIT with session 14 Shortness of Breath with Exercise Yes Desaturation with Exercise No Free Weight Yes: 3# Band Level Yes: #4 Toward Target Goals pt has increased tolerance with weights and resistance bands to 10 reps x 2 sets increased participation in physical activities, including domestic activities improved functional capacity with improved endurance and strength-showing progress [place] Nutrition Re-Assessment Patient Monitoring Glucose Yes Medication Compliance Yes BS in Range Yes [place] Psychosocial Re-Assessment Patient in Class Regularly Yes Interventions Pt attending class regularly Goals Pt will continue to attend classes 3x wk,Participate in social and educational discussion,Received emotional support from family/friends
[2019-08-09 15:34] VITALS: BMI 24.7
--- NOTE | 2019-08-09 15:43 | PR.REVALNOTE ---
Current Diagnoses Lung transplant status (08/09/19) Past Medical History (Last Reviewed 05/23/19 @ 15:29 by Virginia Colvin DO) Abnormal chest xray (Chronic) Chronic cough (Chronic) Hypothyroidism (Chronic) Pulmonary fibrosis (Chronic) Seasonal allergies (Chronic) Visit Care Team Role Provider Type Elliot Riddle MD Primary Care Provider Physician Specialty: Internal Medicine Address: [address] [place] [address], [address], [address] Email: [email or web address] Other Providers Specialty: Address: Phone: Fax: Email: Doctor Shiva MD Attending Provider Non-Staff Specialty: Medical Address: Phone: Fax: Email: Pulmonary Rehab Re-Evaluation [place] Pulmonary Rehab. Re-Assessment Start: 05/11/19 12:40 Freq: Status: Active Protocol: Document 06/21/19 13:47 RADHA (Rec: 06/21/19 16:30 JWS [id number]) [place] Exercise Re-Assessment New Session Number 1-12 Type Treadmill,BioDex METs (resistance level) 3.6 strdr 2.25 TM Interval Training No Shortness of Breath with Exercise Yes Desaturation with Exercise No Document 06/21/19 15:29 JWS (Rec: 06/21/19 15:34 JWS [email or web address]) [place] Exercise Re-Assessment New Session Number 2-12 Type Treadmill,BioDex METs (resistance level) TM2.25 Strdr 3.60 % Improvement TM 17% Strdr 97% Interval Training No: plan is to start VIIT with session 14 Shortness of Breath with Exercise Yes Desaturation with Exercise No Free Weight Yes: 3# Band Level Yes: #4 Toward Target Goals pt has increased tolerance with weights and resistance bands to 10 reps x 2 sets increased participation in physical activites, including domestic activities improved functional capacity with improved endurance and strength-showing progress [place] Nutrition Re-Assessment Patient Monitoring Glucose Yes Medication Compliance Yes BS in Range Yes [place] Psychosocial Re-Assessment Patient in Class Regularly Yes Interventions Pt attending class regularly Goals Pt will continue to attend classes 3x wk,Participate in social and educational discussion,Received emotional support from family/friends Document 08/09/19 15:34 MELISSAS (Rec: 08/09/19 15:43 JWS [id number]) [place] Exercise Re-Assessment New Session Number 13-24 Type Treadmill,LULI METs (resistance level) TM 3.36 STRDR6.08 Interval Training Yes: 10.0 strdr Shortness of Breath with Exercise Yes Desaturation with Exercise No Free Weight Yes: 4# 12r 2s Band Level Yes: #5 [place] Nutrition Re-Assessment Height 185.42 cm Weight 85.275 kg Current BMI (BMI) 24.7 Progress to Weight Goal Yes Goals Pt will continue focusing on weight gain,Pt will continue to learn tips [place] Education Re-Assessment Topics Normal Anatomy and Physiology, Chronic Lung Disease,Breathing Retraining,Benefits of Exercise,Activities of daily living/Leisure Activities, Coping with Chronic Lung Disease Goals Pt will Master PLB and Diaphragmatic Breathing,Pt will Master Energy Conserving Techniques,Pt will learn exercise safety,Pt will continue ED topics until completion [place] Psychosocial Re-Assessment Patient in Class Regularly Yes Interventions Pt attending class regularly Referral Needed No Goals Pt will continue to attend classes 3x wk,Participate in social and educational discussion,Received emotional support from family/friends
--- NOTE | 2019-09-01 15:49 | PR.DCNOTE ---
Current Diagnoses Lung transplant status (08/30/19) Past Medical History (Last Reviewed 05/23/19 @ 15:29 by Virginia Colvin DO) Abnormal chest xray (Chronic) Chronic cough (Chronic) Hypothyroidism (Chronic) Pulmonary fibrosis (Chronic) Seasonal allergies (Chronic) Visit Care Team Role Provider Type Elliot Riddle MD Primary Care Provider Physician Specialty: Internal Medicine Address: [address] [place] [address], [address], [address] Email: [email or web address] Other Providers Specialty: Address: Phone: Fax: Email: Doctor Shiva MD Attending Provider Non-Staff Specialty: Medical Address: Phone: Fax: Email: Pulmonary Rehab Discharge Evaluation [place] Pulmonary Rehab. DC Assessment Start: 05/11/19 12:40 Freq: Status: Active Protocol: Document 09/01/19 15:34 RADHA (Rec: 09/01/19 15:49 RADHA [id number]) [place] Exercise Discharge Assess Session 1 Type Treadmill,BioDex METs (resistance level) 4.63TM 3.36 STRDR % Improvement 4% TM Interval Training Yes: 4.63TM 12.34 STRDR Shortness of Breath with Exercise Yes Desaturation with Exercise No Free Weight Yes: 5# 12R 2S Band Level Yes: #4 Intervention DUE TO CHRONIC INJURY AND PAIN IN LEFT SHOULDER PT USES LOWER WEIGHT BUT IS ABLE TO FULLY PARTICIPATE Toward Target Goals INCREASING RESISTANCE TOLERANCE-SHOWING PROGRESS DC Nutrition DC Assessment Patient Ready No Reason MD Request Additional Sessions DC Education DC Assessment Education Topics Normal Pulmonary Anatomy and Physiology,Chronic Lung Disease,Description and Interpretation of Medical Tests,Breathing Retraining, Bronchial Hygiene,Medications, Benefits of Exercise, Activities of Daily Living/ Leisure Activities,Eating Right,Irritant Avoidance/ Prevention of Respiratory Infection,Coping with Chronic Lung Disease,Oxygen How and When,Metabolic Syndrome,Asthma Education Target Goals PT educated on medication's taken at home,Pt educated on PBL and relaxation techniques
--- NOTE | 2019-11-04 14:40 | PR.DCNOTE ---
Current Diagnoses Lung transplant status (11/04/19) Past Medical History (Last Reviewed 05/23/19 @ 15:29 by Virginia Colvin DO) Abnormal chest xray (Chronic) Chronic cough (Chronic) Hypothyroidism (Chronic) Pulmonary fibrosis (Chronic) Seasonal allergies (Chronic) Visit Care Team Role Provider Type Elliot Riddle MD Primary Care Provider Physician Specialty: Internal Medicine Address: [address] [place] [address], [address], [address] Email: [email or web address] Other Providers Specialty: Address: Phone: Fax: Email: Doctor Shiva MD Attending Provider Non-Staff Specialty: Medical Address: Phone: Fax: Email: Pulmonary Rehab Discharge Evaluation OR Education Start: 05/11/19 12:40 Freq: Status: Active Protocol: Document 09/13/19 15:25 RADHA (Rec: 09/13/19 15:26 RADHA [id number]) OR Education Education mets and importance of exercise and risks of deconditioning OR Pulmonary Rehab. DC Assessment Start: 05/11/19 12:40 Freq: Status: Active Protocol: Document 09/01/19 15:34 MELISSAS (Rec: 09/01/19 15:49 RADHA [id number]) OR Exercise Discharge Assess Session 1 Type Treadmill,BioDex METs (resistance level) 4.63TM 3.36 STRDR % Improvement 4% TM Interval Training Yes: 4.63TM 12.34 STRDR Shortness of Breath with Exercise Yes Desaturation with Exercise No Free Weight Yes: 5# 12R 2S Band Level Yes: #4 Intervention DUE TO CHRONIC INJURY AND PAIN IN LEFT SHOULDER PT USES LOWER WEIGHT BUT IS ABLE TO FULLY PARTICIPATE Toward Target Goals INCREASING RESISTANCE TOLERANCE-SHOWING PROGRESS OR Nutrition DC Assessment Patient Ready No Reason MD Request Additional Sessions OR Education DC Assessment Education Topics Normal Pulmonary Anatomy and Physiology,Chronic Lung Disease,Description and Interpretation of Medical Tests,Breathing Retraining, Bronchial Hygiene,Medications, Benefits of Exercise, Activities of Daily Living/ Leisure Activities,Eating Right,Irritant Avoidance/ Prevention of Respiratory Infection,Coping with Chronic Lung Disease,Oxygen How and When,Metabolic Syndrome,Asthma Education Target Goals PT educated on medication's taken at home,Pt educated on PBL and relaxation techniques Document 11/04/19 14:12 RADHA (Rec: 11/04/19 14:40 Jose [id number]) OR Exercise Discharge Assess Session 9 Type Treadmill,BioDex METs (resistance level) TM5.49 STRDR 11.4 Interval Training Yes: 13.60 STRDR TM 7.49 Shortness of Breath with Exercise Yes Desaturation with Exercise No Free Weight Yes: 5# 12R 2S Band Level Yes: #4 BAND Toward Target Goals Increased in physical activity including domestic and recreational activities initiated independent exercise consisting of purposeful walking and resistance exercises participates in aerobic acitvity 3x week in Pulmonary rehabilitation Improved functional capacity with improved endurance and strength OR Nutrition DC Assessment Weight 76.204 kg Weight Goal Met Yes Goals Pt will continue to learn tips Patient Ready Yes Reason Completed Max Sessions OR Education DC Assessment Tobacco Use No OR Psychosocial DC Assessment HADS Depression Score 2 HADS Anxiety Score 1 Goals verbalizes and demonstrates management of depression and anxiety HADS anxiety score=1 which falls in nonsignificant range- goal met HADS depression score=2 which falls in nonsignificant range- goal met OR Six Minute Walk Test Oxygen Delivery Method Room Air Respiratory Rate (breaths/min) 12 Pulse Rate (beats/min) 80 O2 Saturation by Pulse Oximetry (%) 98 Pulse Rate (beats/min) 89 Ambulation Distance (feet) 200 O2 Saturation by Pulse Oximetry (%) 98 Pulse Rate (beats/min) 82 Ambulation Distance (feet) 250 O2 Saturation by Pulse Oximetry (%) 98 Pulse Rate (beats/min) 89 Ambulatory Distance (feet) 250 O2 Saturation by Pulse Oximetry (%) 98 Pulse Rate (beats/min) 88 Ambulation Distance (feet) 200 O2 Saturation by Pulse Oximetry (%) 98 Pulse Rate (beats/min) 89 Ambulation Distance (feet) 200 O2 Saturation by Pulse Oximetry (%) 98 PUlse Rate (beats/min) 87 Ambulation Distance (feet) 280 O2 Saturation by Pulse Oximetry (%) 97 Respiratory Rate (breaths/min) 12 Pulse Rate (beats/min) 79 O2 Saturation by Pulse Oximetry (%) 99 Activity Tolerance Excellent Distance 1380.0 Nely RPE Scale 6 Oriented to RPE Scale Yes Dyspnea 2 Oriented to Dyspnea Scale Yes Comment 245% increase in distance from initial 6MWT
== END 2019-11-04 12:30 ==
LOC: PUL 11:30
PROVIDERS: PCP Student in an Organized Health Care Education/Training Program
DX: Z94.2 Lung transplant status (principal)
CPT/HCPCS: G0237; G0238

== ENCOUNTER 2019-11-05 14:30 | Outpatient (RCR) | payer MEDICARE, MEDICAID, SELFPAY ==
[2019-05-27 15:06] VITALS: BMI 19.8
--- NOTE | 2019-10-01 17:40 | PT.OIE ---
Current Diagnoses Pain in left shoulder (10/01/19) Past Medical History (Last Reviewed 05/23/19 @ 15:29 by Virginia Colvin DO) Abnormal chest xray (Chronic) Chronic cough (Chronic) Hypothyroidism (Chronic) Pulmonary fibrosis (Chronic) Seasonal allergies (Chronic) Past Surgical History (Last Reviewed 05/23/19 @ 15:29 by Virginia Colvin DO) Anesthesia (Resolved) History of mandibular surgery (Resolved ~1990) Visit Care Team Role Provider Type Elliot Riddle MD Attending Provider Physician Family Provider Primary Care Provider Referring Provider Specialty: Internal Medicine Address: [address] [place] [address], [address], [facility] Email: [email or web address] Physical Therapy Initial Evaluation PT-OP-A Visit Information Start: 10/01/19 16:04 Freq: Status: Active Protocol: Document 10/01/19 16:16 EG (Rec: 10/01/19 16:34 EG [email or web address]) Out-Patient Physical Therapy Visit Information Visit Information Visit Type Initial Evaluation Visit Note Seen after MRI Visit Start Time 13:45 Visit Stop Time 14:30 Total Visit Minutes 45 Visit Number 1 Number of REPATCHER Visits 0 Evaluation Information Evaluation Date 10/01/19 Precautions Precautions Past Bilateral Lung Transplant due to Pulmonary Fibrosis as well as Mandible Transplant in 1991 PT-OP-B Current Condition Start: 10/01/19 16:04 Freq: Status: Active Protocol: Document 10/01/19 16:16 EG (Rec: 10/01/19 16:34 EG [email or web address]) Current Condition History of Current Condition Onset Date 1 year ago Current Complaints Pain during every day activities History of Current Condition Patient reports that about 1 year ago his L shoulder started to bother him and has been getting progressively worse. He kept pushing it off and it recently has gotten so bad, he would like to do something about it. Patient currently attends pulmonary rehabilitation due to a bilateral lung transplant in 2019 after suffering from pulmonary fibrosis. 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 The patient was a big weightlifter in the past until he was about 60 years old but had to stop due to the combination of pectoral weakness, shoulder pain, and decreased lung function. The patient reports increased shoulder pain when doing daily activities such as playing with granddaughter, dressing himself and tucking his shirt in, and doing every day mundane activities. He reports that I can hardly raise it up and that sleeping bothers him waking him up every hour due to the pain of rolling on the shoulder. The patient denies any numbness and tingling in the L arm or fingers. Patient recently got an MRI of the shoulder. He currently lives with his son but is planning on moving to [place] in the middle of October for 3 months. He would like to know what he could do for his shoulder pain. Prior Treatments and Tests Bilateral Lung Transplant in 2018 Mandible Transplant in 1991 MRI of Shoulder 10/01/2019 Treatment Goals Patient/Caregiver Goals Patient would like to increase motion without the pain Prior Functional Status Baseline Function- ADL's Independent Baseline Function- Mobility Independent Baseline Function- Gait Independent Baseline Function- Work/School Retired Baseline Function- Recreation/Hobbies Currently in Pulmonary rehabilitation Spends time with family Current Functional Impairments (Reported) Functional Limitations- ADL's Dressing is very painful Hard to sleep at night due to pain in shoulder and rolling on to that side Functional Limitations- Mobility/Gait Reaching overhead is very painful Functional Limitations- Recreation/ Mundane activities are Hobbies getting harder to do Personal Factors Other Personal Factors That May Effect Patient is planning on leaving Therapy/Recovery for [place] in Mid-October that may affect POC; HEP will be required History of back pain, neck pain, jaw pain, TBI/concussion , and thyroid disorder Diabetes type II Depression Shortness of breath may effect ability to participate in increased activity Seeing pulmonary rehab 3x/week may effect scheduling PT-OP-C Subjective Start: 10/01/19 16:04 Freq: Status: Active Protocol: Document 10/01/19 16:16 EG (Rec: 10/01/19 16:34 EG [email or web address]) Patient Questionnaires Quick Dash- Upper Extremity Quick Dash UE Score 63.6 Quick Dash UE Impairment 60 to 79% Impaired (Score 60- 79) OP-PT Pain Assessment Pain Assessment Grid Paper Pain Assessment Grid Completed Yes: 6/10 in L shoulder PT-OP-E Functional Tests Start: 10/01/19 16:04 Freq: Status: Active Protocol: Document 10/01/19 16:16 EG (Rec: 10/01/19 16:48 EG [email or web address]) Functional Tests Apley's Scratch Test Action 2- Left could not do Action 2- Right WNL Action 3- Left WNL Action 3- Right WNL PT-OP-J Posture/Palpation/Skin Start: 10/01/19 16:04 Freq: Status: Active Protocol: Document 10/01/19 16:16 EG (Rec: 10/01/19 16:48 EG [email or web address]) Palpation Assessment Location One Palpation Location Infraspinatus, Scapular spine, supraspinatus, and Biceps tendon Palpation Findings Tenderness Palpation Details Patient reported tenderness in all above locations. PT-OP-K Range of Motion Start: 10/01/19 16:04 Freq: Status: Active Protocol: Document 10/01/19 16:16 EG (Rec: 10/01/19 16:48 EG [email or web address]) Cervical Spine Range of Motion Cervical Spine Active Testing Position Sitting ROM Limitations Pain Comments Patient limited in extension reporting p! on R lateral side of neck. Patient has decreased rotation to the R side and decreased L lateral flexion. Does not seem to be related to L shoulder pain. Shoulder Goniometric Range of Motion Shoulder Left Passive Shoulder ROM WFL No Testing Position Supine Flexion 112 Abduction 110 External Rotation at 90 degrees 0 Abduction Left Active Shoulder ROM WFL No Testing Position Sitting Flexion 90 Abduction 98 External Rotation at 90 degrees 0 Abduction Internal Rotation Behind Back (text) Fingers at L2/L3 Active Shoulder ROM WFL Yes Internal Rotation Behind Back (text) R shoulder IR at T9/T10 PT-OP-L Special Tests Start: 10/01/19 16:04 Freq: Status: Active Protocol: Document 10/01/19 16:16 EG (Rec: 10/01/19 16:48 EG [email or web address]) Special Tests Shoulder Special Tests Grind Labrum Test Results - Comments Done seated - felt decreased pain with shoulder stabilization Drop Arm Rotator Cuff Test Results - Empty Can Test Results + Neer Impingement Test Results + [place] Test Test Results + Hornblowers Sign Test Results + Comments L elbow slightly inferior to R elbow Biceps Load II Test Test Results + Goldberg Blas Impingement Test Results + Apprehension Test Test Results - PT-OP-M Strength Start: 10/01/19 16:04 Freq: Status: Active Protocol: Document 10/01/19 16:16 EG (Rec: 10/01/19 16:48 EG [email or web address]) Shoulder Strength Shoulder Manual Muscle Testing Right Reason Not Measured WFL Left External Rotation 3 Fair Reason Not Measured Pain Comments Patient was painful in all planes in L shoulder PT-OP-Q Treatments Start: 10/01/19 16:04 Freq: Status: Active Protocol: Document 10/01/19 16:16 EG (Rec: 10/01/19 16:48 EG [email or web address]) Therapeutic Exercises Standing Exercises Isometric Shoulder Standing Exercise Name Isometrics in ER, Abduction, and Flexion Side left Resistance 50% maximum Equipment Used wall Reps/Minutes 8x Comments Hold for 3 sec each rep - perform for HEP PT-OP-T Assessment and Plan Start: 10/01/19 16:04 Freq: Status: Active Protocol: Document 10/01/19 16:16 EG (Rec: 10/01/19 17:07 EG [email or web address]) Physical Therapy Assessment Rehab Potential Rehabilitation Potential Good Evaluation Complexity Number of Personal Factors/Comorbidities 3 or More Number of Body Systems Impaired 4 or More Clinical Presentation at Evaluation Evolving Impairments Impairments Activity Tolerance,Functional Activities,Functional Mobility ,Pain,ROM,Strength Other Concerns Barriers to Rehabilitation Pulmonary rehabilitation frequency Plan to leave for 3 months in mid-October Goals Four Impairment Patient does not have appropriate HEP at this time Breakdown Person Goal (LTG) Patient will be given education and explanation of HEP to do while in [place] when discharged from Physical Therapy. LTG Duration 6 weeks Three Impairment Functional Activity Short Term Goal (STG) Patient will be able to sleep through the night with a maximum of 2 interruptions throughout the night due to pain in 4 weeks. STG Duration 4 weeks Half-Way Goal (LTG) Patient will be able to sleep throughout the night with no interruptions due to L shoulder pain in 6 weeks. LTG Duration 6 weeks Two Impairment Pain Short Term Goal (STG) Patient will be able to put shirt on with maximum 2/10 pain in 4 weeks. STG Duration 4 weeks Half-Way Goal (LTG) Patient will be able to lift up to cupboard at home and take out dishes with max 2/10 pain in 6 weeks LTG Duration 6 weeks One Impairment ROM Short Term Goal (STG) Patient will increase flexion AROM to 120deg with maximum 3/ 10 pain in 4 weeks. STG Duration 4 weeks Half-Way Goal (LTG) Patient will increase flexion AROM to 160 deg with maximum 2 /10 pain in 6 weeks. LTG Duration 6 weeks Assessment Summary Assessment Patient presents to physical therapy with increased L shoulder sensitivity and what seems to be L subacromial impingement after presenting with positive tests for nearly all shoulder special tests. Patient has severe decrease in ROM and strength due to pain. Patient has a history of pushing through pain and is possible has irritated and inflamed supraspinatus tendon, infraspinatus tendon, proximal biceps tendon as well as subacromial bursa. Pain management and education will be important for patient as well as gradual strengthening after pain reduction. PROM in all planes is warranted to improve tolerance to strengthening exercises as well as AROM with decreased pain. Physical Therapy Plan Frequency and Duration Frequency of Treatment 2x/Week Duration of Treatment 6 weeks Plan of Care Start Date 10/01/19 Plan of Care End Date 11/12/19 Therapeutic Interventions Therapeutic Interventions Home Exercise Program,Joint Mobilizations,Manual Therapy, Patient/Caregiver Education, Self-Care/Home Management,Soft Tissue Mobilization,Taping, Therapeutic Activities, Therapeutic Exercises Modalities Cold Pack/Ice Massage,Electric Stimulation Next Visit Focus/Plan Next Note Type Treatment Note Next Visit Plan Assess isometrics. Perform PROM in all motions. Perform posterior/inferior GHJ mobilization. Progress scapular and rotator cuff strengthening as tolerated. Guera Byrd DPT, supervised all treatment performed by, and agreed with the plan of care, as performed by ANSHUL Vincent.
--- NOTE | 2019-10-01 17:41 | PT.OPPOC ---
Physical, Occupational & Speech Therapy At [facility] Current Diagnoses Pain in left shoulder (10/01/19) Visit Care Team Role Provider Type Elliot Riddle MD Attending Provider Physician Family Provider Primary Care Provider Referring Provider Specialty: Internal Medicine Address: [address] [place] [address], [facility] [address], [place], [address] Email: [email or web address] Plan Of Care PT-OP-T Assessment and Plan Start: 10/01/19 16:04 Freq: Status: Active Protocol: Document 10/01/19 16:16 EG (Rec: 10/01/19 17:07 EG [email or web address]) Physical Therapy Assessment Rehab Potential Rehabilitation Potential Good Evaluation Complexity Number of Personal Factors/Comorbidities 3 or More Number of Body Systems Impaired 4 or More Clinical Presentation at Evaluation Evolving Impairments Impairments Activity Tolerance,Functional Activities,Functional Mobility ,Pain,ROM,Strength Other Concerns Barriers to Rehabilitation Pulmonary rehabilitation frequency Plan to leave for 3 months in mid-October Goals Four Impairment Patient does not have appropriate HEP at this time [facility] Goal (LTG) Patient will be given education and explanation of HEP to do while in [place] when discharged from Physical Therapy. LTG Duration 6 weeks Three Impairment Functional Activity Short Term Goal (STG) Patient will be able to sleep through the night with a maximum of 2 interruptions throughout the night due to pain in 4 weeks. STG Duration 4 weeks [facility] Goal (LTG) Patient will be able to sleep throughout the night with no interruptions due to L shoulder pain in 6 weeks. LTG Duration 6 weeks Two Impairment Pain Short Term Goal (STG) Patient will be able to put shirt on with maximum 2/10 pain in 4 weeks. STG Duration 4 weeks [facility] Goal (LTG) Patient will be able to lift up to cupboard at home and take out dishes with max 2/10 pain in 6 weeks LTG Duration 6 weeks One Impairment ROM Short Term Goal (STG) Patient will increase flexion AROM to 120deg with maximum 3/ 10 pain in 4 weeks. STG Duration 4 weeks [facility] Goal (LTG) Patient will increase flexion AROM to 160 deg with maximum 2 /10 pain in 6 weeks. LTG Duration 6 weeks Assessment Summary Assessment Patient presents to physical therapy with increased L shoulder sensitivity and what seems to be L subacromial impingement after presenting with positive tests for nearly all shoulder special tests. Patient has severe decrease in ROM and strength due to pain. Patient has a history of pushing through pain and is possible has irritated and inflamed supraspinatus tendon, infraspinatus tendon, proximal biceps tendon as well as subacromial bursa. Pain management and education will be important for patient as well as gradual strengthening after pain reduction. PROM in all planes is warranted to improve tolerance to strengthening exercises as well as AROM with decreased pain. Physical Therapy Plan Frequency and Duration Frequency of Treatment 2x/Week Duration of Treatment 6 weeks Plan of Care Start Date 10/01/19 Plan of Care End Date 11/12/19 Therapeutic Interventions Therapeutic Interventions Home Exercise Program,Joint Mobilizations,Manual Therapy, Patient/Caregiver Education, Self-Care/Home Management,Soft Tissue Mobilization,Taping, Therapeutic Activities, Therapeutic Exercises Modalities Cold Pack/Ice Massage,Electric Stimulation Next Visit Focus/Plan Next Note Type Treatment Note Next Visit Plan Assess isometrics. Perform PROM in all motions. Perform posterior/inferior GHJ mobilization. Progress scapular and rotator cuff strengthening as tolerated. IGuera, BYRONT, supervised all treatment performed by, and agreed with the plan of care, as performed by Nikki Valdes, ANSHUL. Electronically Signed by: Guera Hernandez, PT 10/01/19 9975 Please Sign and Return: I have reviewed this Plan of Care and certify that the skilled therapy services above are required to meet the patient?s needs. Physician Signature Date Printed Name and Credentials Clinical Instructor Signature Printed Name and Credentials
--- NOTE | 2019-10-12 09:05 | PT.OTN ---
Current Diagnoses Pain in left shoulder (10/12/19) Physical Therapy Treatment Note PT-OP-A Visit Information Start: 10/01/19 16:04 Freq: Status: Active Protocol: Document 10/12/19 08:21 SP (Rec: 10/12/19 09:48 SP [id number]) Out-Patient Physical Therapy Visit Information Visit Information Visit Type Treatment Note Visit Start Time 08:22 Visit Stop Time 09:05 Total Visit Minutes 43 Visit Number 2 Number of TANK TRUCK MILK RECEIVER Visits 1 PT-OP-B Current Condition Start: 10/01/19 16:04 Freq: Status: Active Protocol: Document 10/01/19 16:16 EG (Rec: 10/01/19 16:34 EG [email or web address]) Current Condition History of Current Condition Onset Date 1 year ago Current Complaints Pain during every day activities History of Current Condition Patient reports that about 1 year ago his L shoulder started to bother him and has been getting progressively worse. He kept pushing it off and it recently has gotten so bad, he would like to do something about it. Patient currently attends pulmonary rehabilitation due to a bilateral lung transplant in 2019 after suffering from pulmonary fibrosis. 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 The patient was a big weightlifter in the past until he was about 60 years old but had to stop due to the combination of pectoral weakness, shoulder pain, and decreased lung function. The patient reports increased shoulder pain when doing daily activities such as playing with granddaughter, dressing himself and tucking his shirt in, and doing every day mundane activities. He reports that I can hardly raise it up and that sleeping bothers him waking him up every hour due to the pain of rolling on the shoulder. The patient denies any numbness and tingling in the L arm or fingers. Patient recently got an MRI of the shoulder. He currently lives with his son but is planning on moving to [place] in the middle of October for 3 months. He would like to know what he could do for his shoulder pain. Prior Treatments and Tests Bilateral Lung Transplant in 2018 Mandible Transplant in 1991 MRI of Shoulder 10/01/2019 Treatment Goals Patient/Caregiver Goals Patient would like to increase motion without the pain Prior Functional Status Baseline Function- ADL's Independent Baseline Function- Mobility Independent Baseline Function- Gait Independent Baseline Function- Work/School Retired Baseline Function- Recreation/Hobbies Currently in Pulmonary rehabilitation Spends time with family Current Functional Impairments (Reported) Functional Limitations- ADL's Dressing is very painful Hard to sleep at night due to pain in shoulder and rolling on to that side Functional Limitations- Mobility/Gait Reaching overhead is very painful Functional Limitations- Recreation/ Mundane activities are Hobbies getting harder to do Personal Factors Other Personal Factors That May Effect Patient is planning on leaving Therapy/Recovery for [place] in [place] that may affect POC; HEP will be required History of back pain, neck pain, jaw pain, TBI/concussion , and thyroid disorder Diabetes type II Depression Shortness of breath may effect ability to participate in increased activity Seeing pulmonary rehab 3x/week may effect scheduling PT-OP-C Subjective Start: 10/01/19 16:04 Freq: Status: Active Protocol: Document 10/12/19 08:21 SP (Rec: 10/12/19 09:48 SP [id number]) OP-PT Subjective Patient Comments Patient Comments Pt reported felt ok for 2 days after last then felt more discomfort and today but worsens as day progresses whole L shld. PT-OP-E Functional Tests Start: 10/01/19 16:04 Freq: Status: Active Protocol: Document 10/01/19 16:16 EG (Rec: 10/01/19 16:48 EG [email or web address]) Functional Tests Apley's Scratch Test Action 2- Left could not do Action 2- Right WNL Action 3- Left WNL Action 3- Right WNL PT-OP-J Posture/Palpation/Skin Start: 10/01/19 16:04 Freq: Status: Active Protocol: Document 10/01/19 16:16 EG (Rec: 10/01/19 16:48 EG [email or web address]) Palpation Assessment Location One Palpation Location Infraspinatus, Scapular spine, supraspinatus, and Biceps tendon Palpation Findings Tenderness Palpation Details Patient reported tenderness in all above locations. PT-OP-K Range of Motion Start: 10/01/19 16:04 Freq: Status: Active Protocol: Document 10/01/19 16:16 EG (Rec: 10/01/19 16:48 EG [email or web address]) Cervical Spine Range of Motion Cervical Spine Active Testing Position Sitting ROM Limitations Pain Comments Patient limited in extension reporting p! on R lateral side of neck. Patient has decreased rotation to the R side and decreased L lateral flexion. Does not seem to be related to L shoulder pain. Shoulder Goniometric Range of Motion Shoulder Left Passive Shoulder ROM WFL No Testing Position Supine Flexion 112 Abduction 110 External Rotation at 90 degrees 0 Abduction Left Active Shoulder ROM WFL No Testing Position Sitting Flexion 90 Abduction 98 External Rotation at 90 degrees 0 Abduction Internal Rotation Behind Back (text) Fingers at L2/L3 Active Shoulder ROM WFL Yes Internal Rotation Behind Back (text) R shoulder IR at T9/T10 PT-OP-L Special Tests Start: 10/01/19 16:04 Freq: Status: Active Protocol: Document 10/01/19 16:16 EG (Rec: 10/01/19 16:48 EG [email or web address]) Special Tests Shoulder Special Tests Grind Labrum Test Results - Comments Done seated - felt decreased pain with shoulder stabilization Drop Arm Rotator Cuff Test Results - Empty Can Test Results + Neer Impingement Test Results + Casey Test Test Results + Hornblowers Sign Test Results + Comments L elbow slightly inferior to R elbow Biceps Load II Test Test Results + Goldberg Blas Impingement Test Results + Apprehension Test Test Results - PT-OP-M Strength Start: 10/01/19 16:04 Freq: Status: Active Protocol: Document 10/01/19 16:16 EG (Rec: 10/01/19 16:48 EG [email or web address]) Shoulder Strength Shoulder Manual Muscle Testing Right Reason Not Measured WFL Left External Rotation 3 Fair Reason Not Measured Pain Comments Patient was painful in all planes in L shoulder PT-OP-Q Treatments Start: 10/01/19 16:04 Freq: Status: Active Protocol: Document 10/12/19 08:21 SP (Rec: 10/12/19 09:48 SP [id number]) Therapeutic Exercises Supine Exercises shld ER Side left Equipment Used dowel Reps/Minutes x5 PROM Supine Exercise Name FF, ABD, ER at side Side left shld flexion dowel Side left Resistance AAROM dowel Equipment Used x5 Comments cued slow pacing tolerable range (reported moderate) Sitting Exercises scap retraction Reps/Minutes 10 sec x10 Manual Therapy Treatment Soft Tissue Mobilization STM pec, supraspinatus, deltoid, prox bicep Mobilization Type Cross-Friction,Myofascial Release Intensity/Depth Superficial Body Position Hooklying Joint Mobilizations GH jt mob Joint L shld Direction inf/ posterior Grade II Body Position Hooklying PT-OP-R Modalities Start: 10/01/19 16:04 Freq: Status: Active Protocol: Document 10/12/19 08:21 SP (Rec: 10/12/19 09:48 SP [id number]) Electric Stimulation Electric Stimulation IFC Body Location L shld Intensity 16 Target/Sweep Target High/Low High Patient Position Hooklying Combined With Heat/Cold Hot Pack PT-OP-T Assessment and Plan Start: 10/01/19 16:04 Freq: Status: Active Protocol: Document 10/12/19 08:21 SP (Rec: 10/12/19 09:48 SP [id number]) Physical Therapy Assessment Goals Four Impairment Patient does not have appropriate HEP at this time Laboratory Technology Teacher Goal (LTG) Patient will be given education and explanation of HEP to do while in [place] when discharged from Physical Therapy. LTG Duration 6 weeks Three Impairment Functional Activity Short Term Goal (STG) Patient will be able to sleep through the night with a maximum of 2 interruptions throughout the night due to pain in 4 weeks. STG Duration 4 weeks [employer] Technology Teacher Goal (LTG) Patient will be able to sleep throughout the night with no interruptions due to L shoulder pain in 6 weeks. LTG Duration 6 weeks Two Impairment Pain Short Term Goal (STG) Patient will be able to put shirt on with maximum 2/10 pain in 4 weeks. STG Duration 4 weeks [employer] Teacher Goal (LTG) Patient will be able to lift up to cupboard at home and take out dishes with max 2/10 pain in 6 weeks LTG Duration 6 weeks One Impairment ROM Short Term Goal (STG) Patient will increase flexion AROM to 120deg with maximum 3/ 10 pain in 4 weeks. STG Duration 4 weeks Laboratory Technology Teacher Goal (LTG) Patient will increase flexion AROM to 160 deg with maximum 2 /10 pain in 6 weeks. LTG Duration 6 weeks Assessment Summary Assessment Pt tolerated tx, reported little more irritation during PROM, ok during mobs. Reviewed discussion isometrics and added shld flex dowel supine, seated table glide and scap retraction with cuing for DNF alignment with no worsening in pain than when arrived. + repsonse to IFC and MHP end tx , decreased pain end t x. Physical Therapy Plan Frequency and Duration Frequency of Treatment 2x/Week Duration of Treatment 6 weeks Plan of Care Start Date 10/01/19 Plan of Care End Date 11/12/19 Therapeutic Interventions Therapeutic Interventions Home Exercise Program,Joint Mobilizations,Manual Therapy, Patient/Caregiver Education, Self-Care/Home Management,Soft Tissue Mobilization,Taping, Therapeutic Activities, Therapeutic Exercises Modalities Cold Pack/Ice Massage,Electric Stimulation Next Visit Focus/Plan Next Note Type Treatment Note Next Visit Plan Assess isometrics and added HEP see assessment comments. Continue PT pOC: Perform PROM in all motions. Perform posterior/inferior GHJ mobilization. Progress scapular and rotator cuff strengthening as tolerated.
--- NOTE | 2019-10-19 13:03 | PT.OTN ---
Current Diagnoses Pain in left shoulder (10/19/19) Physical Therapy Treatment Note PT-OP-A Visit Information Start: 10/01/19 16:04 Freq: Status: Active Protocol: Document 10/19/19 12:15 SP (Rec: 10/19/19 13:03 SP [id number]) Out-Patient Physical Therapy Visit Information Visit Information Visit Type Treatment Note Visit Start Time 12:15 Visit Stop Time 13:05 Total Visit Minutes 50 Visit Number 3 Number of RIB STIFFENER AND HEEL DIPPER Visits 2 PT-OP-B Current Condition Start: 10/01/19 16:04 Freq: Status: Active Protocol: Document 10/01/19 16:16 EG (Rec: 10/01/19 16:34 EG [email or web address]) Current Condition History of Current Condition Onset Date 1 year ago Current Complaints Pain during every day activities History of Current Condition Patient reports that about 1 year ago his L shoulder started to bother him and has been getting progressively worse. He kept pushing it off and it recently has gotten so bad, he would like to do something about it. Patient currently attends pulmonary rehabilitation due to a bilateral lung transplant in 2019 after suffering from pulmonary fibrosis. 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 The patient was a big weightlifter in the past until he was about 60 years old but had to stop due to the combination of pectoral weakness, shoulder pain, and decreased lung function. The patient reports increased shoulder pain when doing daily activities such as playing with granddaughter, dressing himself and tucking his shirt in, and doing every day mundane activities. He reports that I can hardly raise it up and that sleeping bothers him waking him up every hour due to the pain of rolling on the shoulder. The patient denies any numbness and tingling in the L arm or fingers. Patient recently got an MRI of the shoulder. He currently lives with his son but is planning on moving to [place] in the middle of October for 3 months. He would like to know what he could do for his shoulder pain. Prior Treatments and Tests Bilateral Lung Transplant in 2018 Mandible Transplant in 1991 MRI of Shoulder 10/01/2019 Treatment Goals Patient/Caregiver Goals Patient would like to increase motion without the pain Prior Functional Status Baseline Function- ADL's Independent Baseline Function- Mobility Independent Baseline Function- Gait Independent Baseline Function- Work/School Retired Baseline Function- Recreation/Hobbies Currently in Pulmonary rehabilitation Spends time with family Current Functional Impairments (Reported) Functional Limitations- ADL's Dressing is very painful Hard to sleep at night due to pain in shoulder and rolling on to that side Functional Limitations- Mobility/Gait Reaching overhead is very painful Functional Limitations- Recreation/ Mundane activities are Hobbies getting harder to do Personal Factors Other Personal Factors That May Effect Patient is planning on leaving Therapy/Recovery for [place] in Mid that may affect POC; HEP will be required History of back pain, neck pain, jaw pain, TBI/concussion , and thyroid disorder Diabetes type II Depression Shortness of breath may effect ability to participate in increased activity Seeing pulmonary rehab 3x/week may effect scheduling PT-OP-C Subjective Start: 10/01/19 16:04 Freq: Status: Active Protocol: Document 10/19/19 12:15 SP (Rec: 10/19/19 13:03 SP [id number]) OP-PT Subjective Patient Comments Patient Comments Pt stated L shdl feeling worse 5/10 lately and cant' think of anything that would cause it to feel worse. Pt stated compliant with HEP and pushing it to the edge of pain to get some benefits. PT-OP-E Functional Tests Start: 10/01/19 16:04 Freq: Status: Active Protocol: Document 10/01/19 16:16 EG (Rec: 10/01/19 16:48 EG [email or web address]) Functional Tests Apley's Scratch Test Action 2- Left could not do Action 2- Right WNL Action 3- Left WNL Action 3- Right WNL PT-OP-J Posture/Palpation/Skin Start: 10/01/19 16:04 Freq: Status: Active Protocol: Document 10/01/19 16:16 EG (Rec: 10/01/19 16:48 EG [email or web address]) Palpation Assessment Location One Palpation Location Infraspinatus, Scapular spine, supraspinatus, and Biceps tendon Palpation Findings Tenderness Palpation Details Patient reported tenderness in all above locations. PT-OP-K Range of Motion Start: 10/01/19 16:04 Freq: Status: Active Protocol: Document 10/01/19 16:16 EG (Rec: 10/01/19 16:48 EG [email or web address]) Cervical Spine Range of Motion Cervical Spine Active Testing Position Sitting ROM Limitations Pain Comments Patient limited in extension reporting p! on R lateral side of neck. Patient has decreased rotation to the R side and decreased L lateral flexion. Does not seem to be related to L shoulder pain. Shoulder Goniometric Range of Motion Shoulder Left Passive Shoulder ROM WFL No Testing Position Supine Flexion 112 Abduction 110 External Rotation at 90 degrees 0 Abduction Left Active Shoulder ROM WFL No Testing Position Sitting Flexion 90 Abduction 98 External Rotation at 90 degrees 0 Abduction Internal Rotation Behind Back (text) Fingers at L2/L3 Active Shoulder ROM WFL Yes Internal Rotation Behind Back (text) R shoulder IR at T9/T10 PT-OP-L Special Tests Start: 10/01/19 16:04 Freq: Status: Active Protocol: Document 10/01/19 16:16 EG (Rec: 10/01/19 16:48 EG [email or web address]) Special Tests Shoulder Special Tests Grind Labrum Test Results - Comments Done seated - felt decreased pain with shoulder stabilization Drop Arm Rotator Cuff Test Results - Empty Can Test Results + Neer Impingement Test Results + Andrew Test Test Results + Hornblowers Sign Test Results + Comments L elbow slightly inferior to R elbow Biceps Load II Test Test Results + Goldberg Blas Impingement Test Results + Apprehension Test Test Results - PT-OP-M Strength Start: 10/01/19 16:04 Freq: Status: Active Protocol: Document 10/01/19 16:16 EG (Rec: 10/01/19 16:48 EG [email or web address]) Shoulder Strength Shoulder Manual Muscle Testing Right Reason Not Measured WFL Left External Rotation 3 Fair Reason Not Measured Pain Comments Patient was painful in all planes in L shoulder PT-OP-Q Treatments Start: 10/01/19 16:04 Freq: Status: Active Protocol: Document 10/19/19 12:15 SP (Rec: 10/19/19 13:03 SP [id number]) Therapeutic Exercises Supine Exercises shld ER Side left Equipment Used AROM Reps/Minutes x5 PROM Supine Exercise Name FF, ABD, ER at side Side left shld flexion dowel Side left Resistance AAROM dowel Equipment Used x5 Comments cued slow pacing tolerable range (reported moderate) Sidelying Exercises L shld ER Resistance AROM Reps/Minutes 2x5 Comments cued slow pacing to neutral Sitting Exercises pulleys Sitting Exercise Name FF, ABD (MWM inferior glide) Reps/Minutes x5 each direction Comments reported less pain with inferior glide scap retraction Reps/Minutes 10 sec x5 Comments reported pulling on anterior L shld Standing Exercises Isometric Shoulder Standing Exercise Name Isometrics in ER, Abduction, and Flexion (discussed HEP) Side left Resistance 50% maximum Equipment Used wall Reps/Minutes 8x Comments Hold for 3 sec each rep - perform for HEP Manual Therapy Treatment Soft Tissue Mobilization self STM racquetball wall Body Location anterior shld Mobilization Type Cross-Friction,Rolling Intensity/Depth Moderate Body Position Standing Comments to tolerance STM pec, supraspinatus, deltoid, prox bicep Mobilization Type Cross-Friction,Myofascial Release Intensity/Depth Superficial Body Position Hooklying Joint Mobilizations GH jt mob Joint L shld Direction inf/ posterior Grade II Body Position Hooklying PT-OP-R Modalities Start: 10/01/19 16:04 Freq: Status: Active Protocol: Document 10/19/19 12:15 SP (Rec: 10/19/19 13:03 SP [id number]) Electric Stimulation Electric Stimulation IFC Body Location L shld Intensity 14-21 Target/Sweep Target High/Low High Patient Position Hooklying Combined With Heat/Cold Hot Pack PT-OP-T Assessment and Plan Start: 10/01/19 16:04 Freq: Status: Active Protocol: Document 10/19/19 12:15 SP (Rec: 10/19/19 13:03 SP [id number]) Physical Therapy Assessment Goals Four Impairment Patient does not have appropriate HEP at this time Halfway Goal (LTG) Patient will be given education and explanation of HEP to do while in [place] when discharged from Physical Therapy. LTG Duration 6 weeks Three Impairment Functional Activity Short Term Goal (STG) Patient will be able to sleep through the night with a maximum of 2 interruptions throughout the night due to pain in 4 weeks. STG Duration 4 weeks Halfway Goal (LTG) Patient will be able to sleep throughout the night with no interruptions due to L shoulder pain in 6 weeks. LTG Duration 6 weeks Two Impairment Pain Short Term Goal (STG) Patient will be able to put shirt on with maximum 2/10 pain in 4 weeks. STG Duration 4 weeks Halfway Goal (LTG) Patient will be able to lift up to cupboard at home and take out dishes with max 2/10 pain in 6 weeks LTG Duration 6 weeks One Impairment ROM Short Term Goal (STG) Patient will increase flexion AROM to 120deg with maximum 3/ 10 pain in 4 weeks. STG Duration 4 weeks Human Resources Intern Goal (LTG) Patient will increase flexion AROM to 160 deg with maximum 2 /10 pain in 6 weeks. LTG Duration 6 weeks Assessment Summary Assessment Pt reported increase pain at end feel of tolerated range during PROM manual and pulleys today but decreased with an inferior glide. Assessed tolerance fo self raquetball to anterior shld at wall with no significant improvement. Pt welcoming to [facility] end of tx for pain control with positive feedback. Physical Therapy Plan Frequency and Duration Frequency of Treatment 2x/Week Duration of Treatment 6 weeks Plan of Care Start Date 10/01/19 Plan of Care End Date 11/12/19 Therapeutic Interventions Therapeutic Interventions Home Exercise Program,Joint Mobilizations,Manual Therapy, Patient/Caregiver Education, Self-Care/Home Management,Soft Tissue Mobilization,Taping, Therapeutic Activities, Therapeutic Exercises Modalities Cold Pack/Ice Massage,Electric Stimulation Next Visit Focus/Plan Next Note Type Treatment Note Next Visit Plan Assess response to last tx: AAROM dowel, lluvia with MWM inferior glide and side ER AROM. Continue PT pOC: Perform PROM in all motions. Perform posterior/inferior GHJ mobilization. Progress scapular and rotator cuff strengthening as tolerated.
--- NOTE | 2019-10-26 13:10 | PT.OTN ---
Current Diagnoses Pain in left shoulder (10/26/19) Physical Therapy Treatment Note PT-OP-A Visit Information Start: 10/01/19 16:04 Freq: Status: Active Protocol: Document 10/26/19 12:15 SP (Rec: 10/26/19 14:19 SP [id number]) Out-Patient Physical Therapy Visit Information Visit Information Visit Type Treatment Note Visit Start Time 12:15 Visit Stop Time 13:10 Total Visit Minutes 55 Visit Number 4 Number of DESKTOP ARCHITECT Visits 3 PT-OP-B Current Condition Start: 10/01/19 16:04 Freq: Status: Active Protocol: Document 10/01/19 16:16 EG (Rec: 10/01/19 16:34 EG [email or web address]) Current Condition History of Current Condition Onset Date 1 year ago Current Complaints Pain during every day activities History of Current Condition Patient reports that about 1 year ago his L shoulder started to bother him and has been getting progressively worse. He kept pushing it off and it recently has gotten so bad, he would like to do something about it. Patient currently attends pulmonary rehabilitation due to a bilateral lung transplant in 2019 after suffering from pulmonary fibrosis. 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 The patient was a big weightlifter in the past until he was about 60 years old but had to stop due to the combination of pectoral weakness, shoulder pain, and decreased lung function. The patient reports increased shoulder pain when doing daily activities such as playing with granddaughter, dressing himself and tucking his shirt in, and doing every day mundane activities. He reports that I can hardly raise it up and that sleeping bothers him waking him up every hour due to the pain of rolling on the shoulder. The patient denies any numbness and tingling in the L arm or fingers. Patient recently got an MRI of the shoulder. He currently lives with his son but is planning on moving to [place] in the middle of October for 3 months. He would like to know what he could do for his shoulder pain. Prior Treatments and Tests Bilateral Lung Transplant in 2018 Mandible Transplant in 1991 MRI of Shoulder 10/01/2019 Treatment Goals Patient/Caregiver Goals Patient would like to increase motion without the pain Prior Functional Status Baseline Function- ADL's Independent Baseline Function- Mobility Independent Baseline Function- Gait Independent Baseline Function- Work/School Retired Baseline Function- Recreation/Hobbies Currently in Pulmonary rehabilitation Spends time with family Current Functional Impairments (Reported) Functional Limitations- ADL's Dressing is very painful Hard to sleep at night due to pain in shoulder and rolling on to that side Functional Limitations- Mobility/Gait Reaching overhead is very painful Functional Limitations- Recreation/ Mundane activities are Hobbies getting harder to do Personal Factors Other Personal Factors That May Effect Patient is planning on leaving Therapy/Recovery for [place] in Mid that may affect POC; HEP will be required History of back pain, neck pain, jaw pain, TBI/concussion , and thyroid disorder Diabetes type II Depression Shortness of breath may effect ability to participate in increased activity Seeing pulmonary rehab 3x/week may effect scheduling PT-OP-C Subjective Start: 10/01/19 16:04 Freq: Status: Active Protocol: Document 10/26/19 12:15 SP (Rec: 10/26/19 14:19 SP [id number]) OP-PT Subjective Patient Comments Patient Comments Pt stated L top shoulder 6/10 pain pre PT, more than when saw PT last week. Pt stated always feels better after leaves and last through rest of day but then settles down and pain comes back. Pt stated knows moving it is good to do but hasn't been seeing significant improvement, even last Fri holding coat and shirt over bent elbow of forearm was hurting and had to put down. PT-OP-E Functional Tests Start: 10/01/19 16:04 Freq: Status: Active Protocol: Document 10/01/19 16:16 EG (Rec: 10/01/19 16:48 EG [email or web address]) Functional Tests Apley's Scratch Test Action 2- Left could not do Action 2- Right WNL Action 3- Left WNL Action 3- Right WNL PT-OP-J Posture/Palpation/Skin Start: 10/01/19 16:04 Freq: Status: Active Protocol: Document 10/01/19 16:16 EG (Rec: 10/01/19 16:48 EG [email or web address]) Palpation Assessment Location One Palpation Location Infraspinatus, Scapular spine, supraspinatus, and Biceps tendon Palpation Findings Tenderness Palpation Details Patient reported tenderness in all above locations. PT-OP-K Range of Motion Start: 10/01/19 16:04 Freq: Status: Active Protocol: Document 10/01/19 16:16 EG (Rec: 10/01/19 16:48 EG [email or web address]) Cervical Spine Range of Motion Cervical Spine Active Testing Position Sitting ROM Limitations Pain Comments Patient limited in extension reporting p! on R lateral side of neck. Patient has decreased rotation to the R side and decreased L lateral flexion. Does not seem to be related to L shoulder pain. Shoulder Goniometric Range of Motion Shoulder Left Passive Shoulder ROM WFL No Testing Position Supine Flexion 112 Abduction 110 External Rotation at 90 degrees 0 Abduction Left Active Shoulder ROM WFL No Testing Position Sitting Flexion 90 Abduction 98 External Rotation at 90 degrees 0 Abduction Internal Rotation Behind Back (text) Fingers at L2/L3 Active Shoulder ROM WFL Yes Internal Rotation Behind Back (text) R shoulder IR at T9/T10 PT-OP-L Special Tests Start: 10/01/19 16:04 Freq: Status: Active Protocol: Document 10/01/19 16:16 EG (Rec: 10/01/19 16:48 EG [email or web address]) Special Tests Shoulder Special Tests Grind Labrum Test Results - Comments Done seated - felt decreased pain with shoulder stabilization Drop Arm Rotator Cuff Test Results - Empty Can Test Results + Neer Impingement Test Results + Pershing Test Test Results + Hornblowers Sign Test Results + Comments L elbow slightly inferior to R elbow Biceps Load II Test Test Results + Goldberg Blas Impingement Test Results + Apprehension Test Test Results - PT-OP-M Strength Start: 10/01/19 16:04 Freq: Status: Active Protocol: Document 10/01/19 16:16 EG (Rec: 10/01/19 16:48 EG [email or web address]) Shoulder Strength Shoulder Manual Muscle Testing Right Reason Not Measured WFL Left External Rotation 3 Fair Reason Not Measured Pain Comments Patient was painful in all planes in L shoulder PT-OP-Q Treatments Start: 10/01/19 16:04 Freq: Status: Active Protocol: Document 10/26/19 12:15 SP (Rec: 10/26/19 14:19 SP [id number]) Therapeutic Exercises Supine Exercises shld flexion dowel Supine Exercise Name FF w/ post glide and ABD w/ inferior glide Side left Resistance AAROM Equipment Used x5 Comments cued slow pacing tolerable range (reported moderate) Prone Exercises L shld HABD, ext Side left Resistance AROM Reps/Minutes 2x5 each Comments cued range to tolerance, post scap mm contraction Sidelying Exercises scapular PNF Sidelying Exercise Name retraction, depression Side left Resistance PROM Reps/Minutes 3 min Manual Therapy Treatment Soft Tissue Mobilization L UT, Lev scap Mobilization Type Cross-Friction,Myofascial Release Intensity/Depth Moderate Body Position Sidelying Comments tolerated well STM pec, supraspinatus, deltoid, prox bicep Body Location L Mobilization Type Cross-Friction,Myofascial Release Intensity/Depth Superficial Body Position Hooklying Comments tolerated well Joint Mobilizations L shld long axis distraction roll Joint L shld Direction FF, ABD small range GH roll/ glide inferior/posterior Grade II Body Position Hooklying GH jt mob Joint L shld Direction inf/ posterior Grade II Body Position Hooklying PT-OP-R Modalities Start: 10/01/19 16:04 Freq: Status: Active Protocol: Document 10/26/19 12:15 SP (Rec: 10/26/19 14:19 SP [id number]) Electric Stimulation Electric Stimulation IFC Body Location L shld Intensity 16-19 Target/Sweep Target High/Low High Patient Position Hooklying Combined With Heat/Cold Hot Pack PT-OP-T Assessment and Plan Start: 10/01/19 16:04 Freq: Status: Active Protocol: Document 10/26/19 12:15 SP (Rec: 10/26/19 14:19 SP [id number]) Physical Therapy Assessment Goals Four Impairment Patient does not have appropriate HEP at this time Usp Goal (LTG) Patient will be given education and explanation of HEP to do while in [place] when discharged from Physical Therapy. LTG Duration 6 weeks Three Impairment Functional Activity Short Term Goal (STG) Patient will be able to sleep through the night with a maximum of 2 interruptions throughout the night due to pain in 4 weeks. STG Duration 4 weeks Usp Goal (LTG) Patient will be able to sleep throughout the night with no interruptions due to L shoulder pain in 6 weeks. LTG Duration 6 weeks Two Impairment Pain Short Term Goal (STG) Patient will be able to put shirt on with maximum 2/10 pain in 4 weeks. STG Duration 4 weeks Wood Preparation Supervisor Goal (LTG) Patient will be able to lift up to cupboard at home and take out dishes with max 2/10 pain in 6 weeks LTG Duration 6 weeks One Impairment ROM Short Term Goal (STG) Patient will increase flexion AROM to 120deg with maximum 3/ 10 pain in 4 weeks. STG Duration 4 weeks Usp Goal (LTG) Patient will increase flexion AROM to 160 deg with maximum 2 /10 pain in 6 weeks. LTG Duration 6 weeks Assessment Summary Assessment Tx focused on manual and pain relief of L shld today superior and posterior AC areas with positive results 6/ 10 to 3/10 post manual, 0/10 post modalities. It feels alot better. Cued for slow movement with scap stabilization during prone L shld ext and HABD exercises today with positive feedback challenging but no painful. Physical Therapy Plan Frequency and Duration Frequency of Treatment 2x/Week Duration of Treatment 6 weeks Plan of Care Start Date 10/01/19 Plan of Care End Date 11/12/19 Therapeutic Interventions Therapeutic Interventions Home Exercise Program,Joint Mobilizations,Manual Therapy, Patient/Caregiver Education, Self-Care/Home Management,Soft Tissue Mobilization,Taping, Therapeutic Activities, Therapeutic Exercises Modalities Cold Pack/Ice Massage,Electric Stimulation Next Visit Focus/Plan Next Note Type Treatment Note Next Visit Plan Assess manual and prone L shld HABD and ext AROM. Continue PT pOC: Perform PROM in all motions, assess isometrics. Perform posterior/ inferior GHJ mobilization. Progress scapular and rotator cuff strengthening as tolerated.
--- NOTE | 2019-10-29 16:35 | PT.OTN ---
Current Diagnoses Pain in left shoulder (10/29/19) Physical Therapy Treatment Note PT-OP-A Visit Information Start: 10/01/19 16:04 Freq: Status: Active Protocol: Document 10/29/19 11:20 EG (Rec: 10/29/19 16:14 EG [id number]) Out-Patient Physical Therapy Visit Information Visit Information Visit Type Treatment Note Visit Start Time 11:20 Visit Stop Time 12:15 Total Visit Minutes 56 Visit Number 5 Number of MANAGER OFFICE SERVICES Visits 0 PT-OP-B Current Condition Start: 10/01/19 16:04 Freq: Status: Active Protocol: Document 10/01/19 16:16 EG (Rec: 10/01/19 16:34 EG [email or web address]) Current Condition History of Current Condition Onset Date 1 year ago Current Complaints Pain during every day activities History of Current Condition Patient reports that about 1 year ago his L shoulder started to bother him and has been getting progressively worse. He kept pushing it off and it recently has gotten so bad, he would like to do something about it. Patient currently attends pulmonary rehabilitation due to a bilateral lung transplant in 2019 after suffering from pulmonary fibrosis. 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 The patient was a big weightlifter in the past until he was about 60 years old but had to stop due to the combination of pectoral weakness, shoulder pain, and decreased lung function. The patient reports increased shoulder pain when doing daily activities such as playing with granddaughter, dressing himself and tucking his shirt in, and doing every day mundane activities. He reports that I can hardly raise it up and that sleeping bothers him waking him up every hour due to the pain of rolling on the shoulder. The patient denies any numbness and tingling in the L arm or fingers. Patient recently got an MRI of the shoulder. He currently lives with his son but is planning on moving to [place] in the middle of October for 3 months. He would like to know what he could do for his shoulder pain. Prior Treatments and Tests Bilateral Lung Transplant in 2018 Mandible Transplant in 1991 MRI of Shoulder 10/01/2019 Treatment Goals Patient/Caregiver Goals Patient would like to increase motion without the pain Prior Functional Status Baseline Function- ADL's Independent Baseline Function- Mobility Independent Baseline Function- Gait Independent Baseline Function- Work/School Retired Baseline Function- Recreation/Hobbies Currently in Pulmonary rehabilitation Spends time with family Current Functional Impairments (Reported) Functional Limitations- ADL's Dressing is very painful Hard to sleep at night due to pain in shoulder and rolling on to that side Functional Limitations- Mobility/Gait Reaching overhead is very painful Functional Limitations- Recreation/ Mundane activities are Hobbies getting harder to do Personal Factors Other Personal Factors That May Effect Patient is planning on leaving Therapy/Recovery for [place] in Mid that may affect POC; HEP will be required History of back pain, neck pain, jaw pain, TBI/concussion , and thyroid disorder Diabetes type II Depression Shortness of breath may effect ability to participate in increased activity Seeing pulmonary rehab 3x/week may effect scheduling PT-OP-C Subjective Start: 10/01/19 16:04 Freq: Status: Active Protocol: Document 10/29/19 11:20 EG (Rec: 10/29/19 11:44 EG [id number]) OP-PT Subjective Patient Comments Patient Comments Patient reports shoulder pain is at about a 2/10 today. It fluctuates, he does do his exercises at home but he does get pain at times. Sleeping is on and off, 45 min to an hour on L shoulder. Overall, he has been enjoying physical therapy and will plan on continuing when in [place]. Patient Reported Progress Improving PT-OP-E Functional Tests Start: 10/01/19 16:04 Freq: Status: Active Protocol: Document 10/01/19 16:16 EG (Rec: 10/01/19 16:48 EG [email or web address]) Functional Tests Apley's Scratch Test Action 2- Left could not do Action 2- Right WNL Action 3- Left WNL Action 3- Right WNL PT-OP-J Posture/Palpation/Skin Start: 10/01/19 16:04 Freq: Status: Active Protocol: Document 10/01/19 16:16 EG (Rec: 10/01/19 16:48 EG [email or web address]) Palpation Assessment Location One Palpation Location Infraspinatus, Scapular spine, supraspinatus, and Biceps tendon Palpation Findings Tenderness Palpation Details Patient reported tenderness in all above locations. PT-OP-K Range of Motion Start: 10/01/19 16:04 Freq: Status: Active Protocol: Document 10/01/19 16:16 EG (Rec: 10/01/19 16:48 EG [email or web address]) Cervical Spine Range of Motion Cervical Spine Active Testing Position Sitting ROM Limitations Pain Comments Patient limited in extension reporting p! on R lateral side of neck. Patient has decreased rotation to the R side and decreased L lateral flexion. Does not seem to be related to L shoulder pain. Shoulder Goniometric Range of Motion Shoulder Left Passive Shoulder ROM WFL No Testing Position Supine Flexion 112 Abduction 110 External Rotation at 90 degrees 0 Abduction Left Active Shoulder ROM WFL No Testing Position Sitting Flexion 90 Abduction 98 External Rotation at 90 degrees 0 Abduction Internal Rotation Behind Back (text) Fingers at L2/L3 Active Shoulder ROM WFL Yes Internal Rotation Behind Back (text) R shoulder IR at T9/T10 PT-OP-L Special Tests Start: 10/01/19 16:04 Freq: Status: Active Protocol: Document 10/01/19 16:16 EG (Rec: 10/01/19 16:48 EG [email or web address]) Special Tests Shoulder Special Tests Grind Labrum Test Results - Comments Done seated - felt decreased pain with shoulder stabilization Drop Arm Rotator Cuff Test Results - Empty Can Test Results + Neer Impingement Test Results + Buchanan Test Test Results + Hornblowers Sign Test Results + Comments L elbow slightly inferior to R elbow Biceps Load II Test Test Results + Goldberg Blas Impingement Test Results + Apprehension Test Test Results - PT-OP-M Strength Start: 10/01/19 16:04 Freq: Status: Active Protocol: Document 10/01/19 16:16 EG (Rec: 10/01/19 16:48 EG [email or web address]) Shoulder Strength Shoulder Manual Muscle Testing Right Reason Not Measured WFL Left External Rotation 3 Fair Reason Not Measured Pain Comments Patient was painful in all planes in L shoulder PT-OP-Q Treatments Start: 10/01/19 16:04 Freq: Status: Active Protocol: Document 10/29/19 11:20 EG (Rec: 10/29/19 14:34 EG [id number]) Therapeutic Exercises Supine Exercises shld flexion dowel Supine Exercise Name FF w Side left Resistance AAROM Equipment Used x5 Comments cued slow pacing tolerable range (reported moderate) Sidelying Exercises Sleeper Stretch Sidelying Exercise Name Sleeper Stretch Side left Reps/Minutes 10x Sitting Exercises scap retraction Sitting Exercise Name Scapular Retraction Reps/Minutes 10x Standing Exercises AAROM Standing Exercise Name Use estefani to help with L shoulder abduction/extension Side left Equipment Used Purple estefani Reps/Minutes 10x TB ER Standing Exercise Name TB ER Side left Resistance L1 Reps/Minutes 10x Comments Increased tenderness of shoulder Manual Therapy Treatment Joint Mobilizations GH jt mob Joint L shld Direction inf/ posterior Grade II Body Position Hooklying Manual Techniques PROM Type PROM Body Location L GHJ Body Position Supine Comments Flexion, Abduction, ER, IR PT-OP-R Modalities Start: 10/01/19 16:04 Freq: Status: Active Protocol: Document 10/29/19 11:20 EG (Rec: 10/29/19 16:14 EG [id number]) Electric Stimulation Electric Stimulation IFC Body Location L shld Duration (Minutes) 15 Intensity 16-19 Target/Sweep Target High/Low High Patient Position Hooklying Combined With Heat/Cold Hot Pack PT-OP-T Assessment and Plan Start: 10/01/19 16:04 Freq: Status: Active Protocol: Document 10/29/19 11:20 EG (Rec: 10/29/19 16:14 EG [id number]) Physical Therapy Assessment Assessment Summary Assessment Patient is progressing slowly in rehab due to increased pain from soft tissue lesions, decreased ROM, and decreased tolerance to resistance training. Important to keep progressing exercises slowly to increase strength of rotator cuff and give HEP that he can continue to perform when on his trip. Physical Therapy Plan Frequency and Duration Frequency of Treatment 2x/Week Duration of Treatment 6 weeks Plan of Care Start Date 10/01/19 Plan of Care End Date 11/12/19 Next Visit Focus/Plan Next Note Type Treatment Note Next Visit Plan Continue to increase exercises patient can do at home. Increase rotator cuff strengthening exercises. Guera Byrd DPT, supervised all treatment performed by, and agreed with the plan of care, as performed by Nikki Valdes, ANSHUL.
--- NOTE | 2019-11-02 16:00 | PT.OTN ---
Current Diagnoses Pain in left shoulder (11/02/19) Physical Therapy Treatment Note PT-OP-A Visit Information Start: 10/01/19 16:04 Freq: Status: Active Protocol: Document 11/02/19 14:30 EG (Rec: 11/02/19 16:37 EG [email or web address]) Out-Patient Physical Therapy Visit Information Visit Information Visit Type Treatment Note Visit Start Time 14:30 Visit Stop Time 15:30 Total Visit Minutes 60 Visit Number 6 Number of WATCHGUARD Visits 0 PT-OP-B Current Condition Start: 10/01/19 16:04 Freq: Status: Active Protocol: Document 10/01/19 16:16 EG (Rec: 10/01/19 16:34 EG [email or web address]) Current Condition History of Current Condition Onset Date 1 year ago Current Complaints Pain during every day activities History of Current Condition Patient reports that about 1 year ago his L shoulder started to bother him and has been getting progressively worse. He kept pushing it off and it recently has gotten so bad, he would like to do something about it. Patient currently attends pulmonary rehabilitation due to a bilateral lung transplant in 2019 after suffering from pulmonary fibrosis. 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 The patient was a big weightlifter in the past until he was about 60 years old but had to stop due to the combination of pectoral weakness, shoulder pain, and decreased lung function. The patient reports increased shoulder pain when doing daily activities such as playing with granddaughter, dressing himself and tucking his shirt in, and doing every day mundane activities. He reports that I can hardly raise it up and that sleeping bothers him waking him up every hour due to the pain of rolling on the shoulder. The patient denies any numbness and tingling in the L arm or fingers. Patient recently got an MRI of the shoulder. He currently lives with his son but is planning on moving to [place] in the middle of October for 3 months. He would like to know what he could do for his shoulder pain. Prior Treatments and Tests Bilateral Lung Transplant in 2018 Mandible Transplant in 1991 MRI of Shoulder 10/01/2019 Treatment Goals Patient/Caregiver Goals Patient would like to increase motion without the pain Prior Functional Status Baseline Function- ADL's Independent Baseline Function- Mobility Independent Baseline Function- Gait Independent Baseline Function- Work/School Retired Baseline Function- Recreation/Hobbies Currently in Pulmonary rehabilitation Spends time with family Current Functional Impairments (Reported) Functional Limitations- ADL's Dressing is very painful Hard to sleep at night due to pain in shoulder and rolling on to that side Functional Limitations- Mobility/Gait Reaching overhead is very painful Functional Limitations- Recreation/ Mundane activities are Hobbies getting harder to do Personal Factors Other Personal Factors That May Effect Patient is planning on leaving Therapy/Recovery for [place] in Mid-October that may affect POC; HEP will be required History of back pain, neck pain, jaw pain, TBI/concussion , and thyroid disorder Diabetes type II Depression Shortness of breath may effect ability to participate in increased activity Seeing pulmonary rehab 3x/week may effect scheduling PT-OP-C Subjective Start: 10/01/19 16:04 Freq: Status: Active Protocol: Document 11/02/19 14:30 EG (Rec: 11/02/19 16:37 EG [email or web address]) OP-PT Subjective Patient Comments Patient Comments Patient reported that he felt better after last appointment but the pain came back the next day. He is still planning on flying to [place] but was informed by Dr. Riddle's nurse to take precautions when flying to stay healthy. He is planning on going to therapy when in [place]. PT-OP-E Functional Tests Start: 10/01/19 16:04 Freq: Status: Active Protocol: Document 10/01/19 16:16 EG (Rec: 10/01/19 16:48 EG [email or web address]) Functional Tests Apley's Scratch Test Action 2- Left could not do Action 2- Right WNL Action 3- Left WNL Action 3- Right WNL PT-OP-J Posture/Palpation/Skin Start: 10/01/19 16:04 Freq: Status: Active Protocol: Document 10/01/19 16:16 EG (Rec: 10/01/19 16:48 EG [email or web address]) Palpation Assessment Location One Palpation Location Infraspinatus, Scapular spine, supraspinatus, and Biceps tendon Palpation Findings Tenderness Palpation Details Patient reported tenderness in all above locations. PT-OP-K Range of Motion Start: 10/01/19 16:04 Freq: Status: Active Protocol: Document 10/01/19 16:16 EG (Rec: 10/01/19 16:48 EG [email or web address]) Cervical Spine Range of Motion Cervical Spine Active Testing Position Sitting ROM Limitations Pain Comments Patient limited in extension reporting p! on R lateral side of neck. Patient has decreased rotation to the R side and decreased L lateral flexion. Does not seem to be related to L shoulder pain. Shoulder Goniometric Range of Motion Shoulder Left Passive Shoulder ROM WFL No Testing Position Supine Flexion 112 Abduction 110 External Rotation at 90 degrees 0 Abduction Left Active Shoulder ROM WFL No Testing Position Sitting Flexion 90 Abduction 98 External Rotation at 90 degrees 0 Abduction Internal Rotation Behind Back (text) Fingers at L2/L3 Active Shoulder ROM WFL Yes Internal Rotation Behind Back (text) R shoulder IR at T9/T10 PT-OP-L Special Tests Start: 10/01/19 16:04 Freq: Status: Active Protocol: Document 10/01/19 16:16 EG (Rec: 10/01/19 16:48 EG [email or web address]) Special Tests Shoulder Special Tests Grind Labrum Test Results - Comments Done seated - felt decreased pain with shoulder stabilization Drop Arm Rotator Cuff Test Results - Empty Can Test Results + Neer Impingement Test Results + Cameron Test Test Results + Hornblowers Sign Test Results + Comments L elbow slightly inferior to R elbow Biceps Load II Test Test Results + Goldberg Blas Impingement Test Results + Apprehension Test Test Results - PT-OP-M Strength Start: 10/01/19 16:04 Freq: Status: Active Protocol: Document 10/01/19 16:16 EG (Rec: 10/01/19 16:48 EG [email or web address]) Shoulder Strength Shoulder Manual Muscle Testing Right Reason Not Measured WFL Left External Rotation 3 Fair Reason Not Measured Pain Comments Patient was painful in all planes in L shoulder PT-OP-Q Treatments Start: 10/01/19 16:04 Freq: Status: Active Protocol: Document 11/02/19 14:30 EG (Rec: 11/02/19 16:37 EG [email or web address]) Therapeutic Exercises Sidelying Exercises Open Book Sidelying Exercise Name Open Book Side bilateral Reps/Minutes 8x each side Comments L arm straight down by hip when lying on L side and twisting to R L shld ER Sidelying Exercise Name L shoulder ER Side left Equipment Used towel roll under arm Reps/Minutes 10x Comments given as HEP Sitting Exercises Bilateral ER alternating arm Sitting Exercise Name Bilateral ER alternating arms Side bilateral Resistance L1 Reps/Minutes 8x each way Comments given L1 TB to do at home - instructed correct form Levator and upper trap stretch Sitting Exercise Name Levator and upper trap stretch , platysma stretch Side bilateral Reps/Minutes 30 sec each hold each side Comments platysma stretch - held fascia of sternum as moving in to cervical extensio pulleys Sitting Exercise Name Pulleys Side bilateral Reps/Minutes [address] Comments flexion/scaption Standing Exercises Hold ER with TB while stepping out Standing Exercise Name Isometric hold of TB resisting IR Side left Equipment Used L1 Reps/Minutes 8x Comments increased sensation in mm after exercise - given for HEP Manual Therapy Treatment Soft Tissue Mobilization L UT, Lev scap Body Location L UT Mobilization Type Cross-Friction,Sustained Pressure Intensity/Depth Moderate Body Position Supine Comments Increased tension in L upper trap today PT-OP-R Modalities Start: 10/01/19 16:04 Freq: Status: Active Protocol: Document 11/02/19 14:30 EG (Rec: 11/02/19 16:37 EG [email or web address]) Electric Stimulation Electric Stimulation IFC Body Location L shld Duration (Minutes) 15 Intensity 16-19 Target/Sweep Target High/Low High Patient Position Hooklying Combined With Heat/Cold Hot Pack PT-OP-T Assessment and Plan Start: 10/01/19 16:04 Freq: Status: Active Protocol: Document 11/02/19 14:30 EG (Rec: 11/02/19 16:37 EG [email or web address]) Physical Therapy Assessment Assessment Summary Assessment Patient was given exercises to perform at home and when he goes to [place] to focus on rotator cuff strengthening. Patient was educated on the labrum, capsule, and importance of strengthening rotator cuff. Patient was also educated on exercise form and technique to facilitate correct mechanics when practicing at home. Patient will review these and come back with questions next appointment and at that point, we will discharge patient due to his upcoming trip. Physical Therapy Plan Next Visit Focus/Plan Next Note Type Discharge Summary Next Visit Plan Review HEP. Stretch out patient shoulder and perform mobilizations. Assess ROM and strength of L shoulder. Guera Byrd, BYRONT, supervised all treatment performed by, and agreed with the plan of care, as performed by Nikki Valdes, ANSHUL.
--- NOTE | 2019-11-05 16:01 | PT.OTN ---
Current Diagnoses Pain in left shoulder (11/05/19) Physical Therapy Treatment Note PT-OP-A Visit Information Start: 10/01/19 16:04 Freq: Status: Active Protocol: Document 11/05/19 14:30 EG (Rec: 11/05/19 15:39 EG [id number]) Out-Patient Physical Therapy Visit Information Visit Information Visit Type Discharge Summary Visit Start Time 14:30 Visit Stop Time 15:55 Total Visit Minutes 55 Visit Number 7 Number of WRAPPER CASHIER Visits 0 PT-OP-B Current Condition Start: 10/01/19 16:04 Freq: Status: Active Protocol: Document 10/01/19 16:16 EG (Rec: 10/01/19 16:34 EG [id number]) Current Condition History of Current Condition Onset Date 1 year ago Current Complaints Pain during every day activities History of Current Condition Patient reports that about 1 year ago his L shoulder started to bother him and has been getting progressively worse. He kept pushing it off and it recently has gotten so bad, he would like to do something about it. Patient currently attends pulmonary rehabilitation due to a bilateral lung transplant in 2019 after suffering from pulmonary fibrosis. 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 The patient was a big weightlifter in the past until he was about 60 years old but had to stop due to the combination of pectoral weakness, shoulder pain, and decreased lung function. The patient reports increased shoulder pain when doing daily activities such as playing with granddaughter, dressing himself and tucking his shirt in, and doing every day mundane activities. He reports that I can hardly raise it up and that sleeping bothers him waking him up every hour due to the pain of rolling on the shoulder. The patient denies any numbness and tingling in the L arm or fingers. Patient recently got an MRI of the shoulder. He currently lives with his son but is planning on moving to [place] in the middle of October for 3 months. He would like to know what he could do for his shoulder pain. Prior Treatments and Tests Bilateral Lung Transplant in 2018 Mandible Transplant in 1991 MRI of Shoulder 10/01/2019 Treatment Goals Patient/Caregiver Goals Patient would like to increase motion without the pain Prior Functional Status Baseline Function- ADL's Independent Baseline Function- Mobility Independent Baseline Function- Gait Independent Baseline Function- Work/School Retired Baseline Function- Recreation/Hobbies Currently in Pulmonary rehabilitation Spends time with family Current Functional Impairments (Reported) Functional Limitations- ADL's Dressing is very painful Hard to sleep at night due to pain in shoulder and rolling on to that side Functional Limitations- Mobility/Gait Reaching overhead is very painful Functional Limitations- Recreation/ Mundane activities are Hobbies getting harder to do Personal Factors Other Personal Factors That May Effect Patient is planning on leaving Therapy/Recovery for [place] in Mid-October that may affect POC; HEP will be required History of back pain, neck pain, jaw pain, TBI/concussion , and thyroid disorder Diabetes type II Depression Shortness of breath may effect ability to participate in increased activity Seeing pulmonary rehab 3x/week may effect scheduling PT-OP-C Subjective Start: 10/01/19 16:04 Freq: Status: Active Protocol: Document 11/05/19 14:30 EG (Rec: 11/05/19 15:39 EG [id number]) OP-PT Subjective Patient Comments Patient Comments Patient reported that he was a 3-4/10 today which was a little better than yesterday. He feels good after he leaves but he has continued to be in pain when home. Overall, he thinks it has helped though. PT-OP-E Functional Tests Start: 10/01/19 16:04 Freq: Status: Active Protocol: Document 10/01/19 16:16 EG (Rec: 10/01/19 16:48 EG [email or web address]) Functional Tests Apley's Scratch Test Action 2- Left could not do Action 2- Right WNL Action 3- Left WNL Action 3- Right WNL PT-OP-J Posture/Palpation/Skin Start: 10/01/19 16:04 Freq: Status: Active Protocol: Document 10/01/19 16:16 EG (Rec: 10/01/19 16:48 EG [email or web address]) Palpation Assessment Location One Palpation Location Infraspinatus, Scapular spine, supraspinatus, and Biceps tendon Palpation Findings Tenderness Palpation Details Patient reported tenderness in all above locations. PT-OP-K Range of Motion Start: 10/01/19 16:04 Freq: Status: Active Protocol: Document 11/05/19 14:30 EG (Rec: 11/05/19 15:39 EG [id number]) Shoulder Goniometric Range of Motion Shoulder Left Active Shoulder ROM WFL No Testing Position Sitting Flexion 90 Abduction 98 External Rotation at 90 degrees 0 Abduction Internal Rotation Behind Back (text) Fingers at L2/L3 PT-OP-L Special Tests Start: 10/01/19 16:04 Freq: Status: Active Protocol: Document 10/01/19 16:16 EG (Rec: 10/01/19 16:48 EG [email or web address]) Special Tests Shoulder Special Tests Grind Labrum Test Results - Comments Done seated - felt decreased pain with shoulder stabilization Drop Arm Rotator Cuff Test Results - Empty Can Test Results + Neer Impingement Test Results + [place] Test Test Results + Hornblowers Sign Test Results + Comments L elbow slightly inferior to R elbow Biceps Load II Test Test Results + Goldberg Blas Impingement Test Results + Apprehension Test Test Results - PT-OP-M Strength Start: 10/01/19 16:04 Freq: Status: Active Protocol: Document 11/05/19 14:30 EG (Rec: 11/05/19 15:39 EG [id number]) Shoulder Strength Shoulder Manual Muscle Testing Left Flexion 4 Good Extension 4 Good Abduction (C5) 3+ Fair+ External Rotation 4 Good Internal Rotation 4 Good Reason Not Measured Pain Comments Patient only had minimal pain in L shoulder with abduction. All other planes painless with fair strength PT-OP-Q Treatments Start: 10/01/19 16:04 Freq: Status: Active Protocol: Document 11/05/19 14:30 EG (Rec: 11/05/19 15:39 EG [id number]) Therapeutic Exercises Sidelying Exercises L shld ER Sidelying Exercise Name L shoulder ER Side left Resistance 2# dumbbell Equipment Used towel roll under arm Reps/Minutes 10x Comments given as HEP Sitting Exercises Levator and upper trap stretch Sitting Exercise Name Levator and upper trap stretch , platysma stretch Side bilateral Reps/Minutes 30 sec each hold each side Comments platysma stretch - held fascia of sternum as moving in to cervical extensio pulleys Sitting Exercise Name Pulleys Side bilateral Reps/Minutes [address] Comments flexion/scaption Manual Therapy Treatment Joint Mobilizations GH jt mob Joint L shld Direction inf/ posterior Grade II Body Position Hooklying Comments Done during passive scaption of L shoulder Manual Techniques PROM Type PROM Body Location L GHJ Body Position Supine Comments Flexion, Abduction Self-Care/Home Management Treatment Education Patient Education Home Exercise Program,Pain Management Other Education Reviewed HEP for when patient leaves for [place]. Answered all questions patient had for discharge. PT-OP-R Modalities Start: 10/01/19 16:04 Freq: Status: Active Protocol: Document 11/05/19 14:30 EG (Rec: 11/05/19 15:39 EG [id number]) Electric Stimulation Electric Stimulation IFC Body Location L shld Duration (Minutes) 15 Intensity 16-19 Target/Sweep Target High/Low High Patient Position Hooklying Combined With Heat/Cold Hot Pack PT-OP-T Assessment and Plan Start: 10/01/19 16:04 Freq: Status: Active Protocol: Document 11/05/19 14:30 EG (Rec: 11/05/19 15:39 EG [id number]) Physical Therapy Assessment Goals Four Impairment Patient does not have appropriate HEP at this time Fdc Goal (LTG) Patient will be given education and explanation of HEP to do while in [place] when discharged from Physical Therapy. 11/05/2019: MET - given exercises and HEP LTG Duration 6 weeks Three Impairment Functional Activity Short Term Goal (STG) Patient will be able to sleep through the night with a maximum of 2 interruptions throughout the night due to pain in 4 weeks. 11/05/2019: Has woke up 3x due to pain. About the same - no change STG Duration 4 weeks Credit Authorizer Goal (LTG) Patient will be able to sleep throughout the night with no interruptions due to L shoulder pain in 6 weeks. 11/05/2019: Still wakes up 2-3x /night. LTG Duration 6 weeks Two Impairment Pain Short Term Goal (STG) Patient will be able to put shirt on with maximum 2/10 pain in 4 weeks. 11/05/2019: 2-3/10 pain when putting shirt on and washing hair. STG Duration 4 weeks Credit Authorizer Goal (LTG) Patient will be able to lift up to cupboard at home and take out dishes with max 2/10 pain in 6 weeks 11/05/2019: Patient unable to do at this point. LTG Duration 6 weeks One Impairment ROM Short Term Goal (STG) Patient will increase flexion AROM to 120deg with maximum 3/ 10 pain in 4 weeks. 11/05/2019: Patient's AROM is still limited in both flexion and abduction. STG Duration 4 weeks Credit Authorizer Goal (LTG) Patient will increase flexion AROM to 160 deg with maximum 2 /10 pain in 6 weeks. 11/05/2019: Patient still limited in AROM flexion and abduction LTG Duration 6 weeks Progress Towards Goals Progress Towards Goals Slow Progress due to Medical Issues Progress Comments Slow progress to goals due to severe structural damage in shoulder and need to leave PT early because of trip. Progress and updates are written above. Assessment Summary Assessment Patient is now discharging from physical therapy due to a planned trip the patient had where he will be gone for 3 months. Patient was only able to attend PT 7x since beginning and has significant structural damage of the rotator cuff where significant progress in ROM was not noted . Patient does have decreased pain when placing resistance through the shoulder compared to when he was starting but he should continue with PT to work on ROM and strengthening when his time allows. He was given HEP to continue with rotator cuff strengthening and ROM while at home. Physical Therapy Plan Discharge Physical Therapy Discharge Reasons Patient Request Discharge Comments Patient had planned trip to [place] he is planning on going on for 3 months so he can no longer continue PT here . Guera Byrd, SOL, supervised all treatment performed by, and agreed with the plan of care, as performed by Nikki Valdes, ANSHUL.
== END 2019-11-10 08:39 ==
LOC: PHYS 14:30
PROVIDERS: Family Provider Student in an Organized Health Care Education/Training Program; PCP Student in an Organized Health Care Education/Training Program; Referring Provider Student in an Organized Health Care Education/Training Program; Visit Provider Student in an Organized Health Care Education/Training Program
DX: M25.512 Pain in left shoulder (principal)
CPT/HCPCS: 97014; 97032; 97110; 97140; 97162; 97535; G0283

== ENCOUNTER → 2020-01-15 14:38 | Outpatient (CLI) | payer MEDICARE, MEDICAID, SELFPAY ==
[2019-05-27 15:06] VITALS: BMI 19.8
[2020-01-16 08:34] LABS: COVID19 Sendout Not Detected (Not Detect)
== END ==
PROVIDERS: Family Provider Student in an Organized Health Care Education/Training Program; PCP Student in an Organized Health Care Education/Training Program; Visit Provider Physician Assistant
DX: Z01.818 Encounter for other preprocedural examination (principal)
CPT/HCPCS: 87635